=== PATIENT | male | born 1935 | race Caucasian/White ===

== ENCOUNTER 2018-12-31 18:01 | Inpatient (IN) | payer MEDICARE, OTHER ==
[2018-12-31] MEDS ORDERED: Nitro 2% OINT* (Nitroglycerin) 1 INCH/PAK PAK TOPICAL ONE (18:29)
--- NOTE | 2018-12-31 18:33 | ED ---
HPI Chest Pain - HPI Summary HPI Summary: An 83 y/o male accompanied by family presents to [facility] with a chief complaint of chest pain since this morning. He reports that he had difficulty sleeping last night, work up with chest pain this morning, ran some errands in town and his chest pain worsened. He reports that his chest pain has been constant and is now an 8/10 in severity. He also reports some nausea. He denies any cough, SOB, fever and vomiting. He says that he usually does not have chest pain when he walks. He claims that his chest pain does not radiate to his back. He denies a Hx or FHx of cardiac disease, HTN or DM. He has never had a stress test done. 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 Vital signs while in room HR: 91bpm, O2 Sat: 96, BP: 177/83. - History of Current Complaint Chief Complaint: EDChestPainROMI Time Seen by Provider: 12/31/18 18:17 Hx Obtained From: Patient, Family/[place] Onset/Duration: Started Hours Ago, Still Present Timing: Constant, Lasting Hours Initial Severity: Moderate Current Severity: Severe Pain Intensity: 7 Pain Scale Used: 0-10 Numeric Chest Pain Location: Diffuse Chest Pain Radiates: No Character: Other: - worsened since this morning Aggravating Factor(s): Exertion Alleviating Factor(s): Nothing Associated Signs and Symptoms: Positive: Nausea. Negative: Shortness of Breath , Fever, Vomiting - Allergy/Home Medications Allergies/Adverse Reactions: Allergies Allergy/AdvReac Type Severity Reaction Status Date / Time No Known Allergies Allergy Verified 12/31/18 18:11 Home Medications: Home Medications Alfuzosin HCl [Alfuzosin HCl ER] 10 mg PO DAILY 12/31/18 [History Confirmed ] Finasteride TAB* [Proscar TAB*] 5 mg PO DAILY 12/31/18 [History Confirmed ] Multivitamins/Minerals TAB* [Theragran/minerals TAB*] 1 tab PO DAILY 12/31/18 [ History Confirmed 12/31/18] Oxybutynin TAB* [Ditropan TAB*] 5 mg PO BID 12/31/18 [History Confirmed 12/31/18 ] amLODIPine TAB* [Norvasc 5 mg TAB*] 2.5 mg PO DAILY 12/31/18 [History Confirmed 12/31/18] PMH/Surg Hx/FS Hx/Imm Hx Endocrine/Hematology History: Denies: Hx Diabetes Cardiovascular History: Denies: Hx Hypertension Sensory History: Denies: Hx Deafness - Surgical History Surgery Procedure, Year, and Place: none reported Infectious Disease History: No Infectious Disease History: Denies: Traveled Outside the [place] in Last 30 Days - Family History Known Family History: Negative: Cardiac Disease, Hypertension, Diabetes - Social History Alcohol Use: Occasionally Hx Substance Use: No Substance Use Type: Reports: None Hx Tobacco Use: No Smoking Status (MU): Never Smoked Tobacco Review of Systems Negative: Fever Positive: Chest Pain Negative: Shortness Of Breath, Cough Positive: Diarrhea. Negative: Vomiting All Other Systems Reviewed And Are Negative: Yes Physical Exam - Summary Physical Exam Summary: Appearance: Well appearing, no pain distress Skin: warm, dry, reflects adequate perfusion Head/face: normal Eyes: EOMI, JULIANE ENT: normal Neck: supple, non-tender Respiratory: CTA, breath sounds present Cardiovascular: RRR, pulses symmetrical Abdomen: non-tender, soft Musculoskeletal: normal, strength/ROM intact Neuro: normal, sensory motor intact, A&Ox3 Triage Information Reviewed: Yes Vital Signs On Initial Exam: Initial Vitals Temp Pulse Resp BP Pulse Ox 98.6 F 96 16 167/71 96 12/31/18 18:08 12/31/18 18:08 12/31/18 18:08 12/31/18 18:08 12/31/18 18:08 Vital Signs Reviewed: Yes Diagnostics - Vital Signs Vital Signs Temp Pulse Resp BP Pulse Ox 12/31/18 18:08 98.6 F 96 16 167/71 96 - Laboratory Result Diagrams: 12/31/18 18:38 12/31/18 18:41 Lab Statement: Any lab studies that have been ordered have been reviewed, and results considered in the medical decision making process. - Radiology CXR Radiology Interpretation Completed By: ED Physician Summary of Radiographic Findings: No acute process. Pending official imaging report. - CT chest/abdomen/pelvis CTA CT Interpretation Completed By: Radiologist Summary of CT Findings: Chest IMPRESSION: 1. No aortic dissection, aneurysm, or rupture. 2. No pulmonary emboli. Abdomen/pelvis IMPRESSION: 1. No aortic dissection, aneurysm, or rupture. 2. Right inguinal hernia. No strangulation. 3. Distal colonic diverticulosis. ED physician has reviewed this imaging report. - EKG 18:23 Cardiac Rate: NL - 90 bpm EKG Rhythm: Sinus Rhythm Summary of EKG Findings: Normal sinus rhythm at 90 bpm, RBBB. Re-Evaluation - Re-Evaluation First Eval Re-Evaluation Time: 19:33 Chest Pain Course/Dx - Course Course Of Treatment: An 83 y/o male accompanied by family presents to [facility] with a chief complaint of chest pain since this morning. He reports that he had difficulty sleeping last night, work up with chest pain this morning, ran some errands in town and his chest pain worsened. The physical exam was unremarkable. Chest/abdomen/pelvis CT impression: Chest IMPRESSION: 1. No aortic dissection, aneurysm, or rupture. 2. No pulmonary emboli. Abdomen/ pelvis IMPRESSION: 1. No aortic dissection, aneurysm, or rupture. 2. Right inguinal hernia. No strangulation. 3. Distal colonic diverticulosis. ED physician has reviewed this imaging report. CXR was negative. EKG at 18:23 showed Normal sinus rhythm at 90 bpm, RBBB. Dr. Hollins, cardiologsit, reviewed the EKG and agreed, stating that there was no acute DE. In the ED course the patient was given Heparin IV, Iohexol (contrast) IV. Metoprolol PO, Morphine IV , NTG topical, and Zofran IV. Bloodwork and chemistries obtained.Case discussed with Dr. Schuster, hospitalist, who accepted the patient for admission. The patient is agreeable with this plan. - Chest Pain Differential Diagnosis/HQI/PQRI: Acute DE, ACS, Angina, Aortic Aneurysm, Lower Respiratory Infection, Pulmonary Embolism - Diagnoses Provider Diagnoses: Unstable angina - Provider Notifications Discussed Care Of Patient With: Altagracia Hollins Time Discussed With Above Provider: 19:36 Instructed by Provider To: Other - Says EKG shows NSR with RBBB and no acute DE - Critical Care Time Critical Care Time: 30-74 min - 60 mins Discharge - Sign-Out/Discharge Documenting (check all that apply): Patient Departure - admit Patient Received Moderate/Deep Sedation with Procedure: No - Discharge Plan Condition: Fair Disposition: ADMITTED TO [facility] Referrals: Cinthia Francisco [Primary Care Provider] - - Billing Disposition and Condition Condition: FAIR Disposition: Admitted to [facility] - Attestation Statements Document Initiated by Cedricibaric: Yes Documenting Scribe: Curtis Melton Provider For Whom Scribe is Documenting (Include Credential): Jaime Hu MD Scribe Attestation: I, Curtis Melton, scribed for Jaime Hu MD on 12/31/18 at 2133. Scribe Documentation Reviewed: Yes Provider Attestation: The documentation as recorded by the Curtis madsen accurately reflects the service I personally performed and the decisions made by me, Jaime Hu MD Status of Scribe Document: Viewed Consult Consult: At 20:50 - Discussed case with Dr. Schuster, hospitalist, who accepted the patient for admission.
[2018-12-31 18:51] LABS: ABS Basophils 0 10^3/ul (0-0.2); ABS Eosinophils 0 10^3/ul (0-0.6); ABS Lymphocytes 0.9 10^3/ul (1.0-4.8); ABS Monocytes 0.9 10^3/ul (0-0.8); ABS Neutrophils 8.8 10^3/ul (1.5-7.7); ABS Nucleated RBC 0 10^3/ul; Eosinophil % 0.2 %; Hematocrit 42 % (36-46); Hemoglobin 14.3 g/dL (14.0-18.0); Lymphocyte % 8.6 %; Mean Corpuscular HGB Conc 34 g/dL (31-36); Mean Corpuscular Hemoglobin 33 pg (27-31); Mean Corpuscular Volume 95 fL (80-94); Mean Platelet Volume 9.5 fL (7.4-10.4); Nucleated Red Blood Cells % 0; Platelet Count 172 10^3/uL (150-450); Red Blood Count 4.41 10^6 /uL (4.18-5.48); Red Cell Distribution Width 13 % (10.5-15); White Blood Count 10.7 10^3/uL (3.5-10.8)
[2018-12-31 19:00] LABS: Activated Partial Thrombo Time 31.2 seconds (26.0-36.3); INR 1.07 (0.77-1.02)
[2018-12-31 19:10] LABS: Troponin I 0.01 ng/mL (<0.04)
[2018-12-31] MEDS ORDERED: Metoprolol Tartrate TAB* 25 MG PO ONE (19:13)
[2018-12-31] MEDS ORDERED: Heparin DRIP 25,000 UNITS(*) 25,000 UNITS/500 ML BAG IV SCH (19:15)
[2018-12-31 19:23] LABS: Albumin 4.1 g/dL (3.2-5.2); Albumin/Globulin Ratio 1.6 (1-3); BUN/Creatinine Ratio 15.2 (8-20); Calcium 8.9 mg/dL (8.6-10.3); EGFR African American 94.8 (>60); EGFR Non-African American 78.4 (>60); Globulin 2.6 g/dL (2-4); Potassium 3.7 mmol/L (3.5-5.0); Total Bilirubin 0.4 mg/dL (0.2-1.0); Total Protein 6.7 g/dL (6.4-8.9)
[2018-12-31] MEDS ORDERED: Ondansetron INJ* 2 MG/ML VIAL IV ONE (19:26)
[2018-12-31] MEDS ORDERED: Morphine INJ* 2 MG/ML 1 ML SYRINGE (TWO MG - NEW SYRINGE VERSION) IV ONE (19:26)
[2018-12-31] MEDS ORDERED: Iohexol 350* (CONTRAST) 500 ML MDV IV ONE (19:34)
[2018-12-31] MEDS ORDERED: Morphine 4 MG/ML VIAL (1 ml) 4 MG/ML VIAL ONE (19:37)
[2018-12-31] MEDS ORDERED: Morphine 4 MG/ML VIAL (1 ml) 4 MG/ML VIAL IV ONE ×2 (19:39→20:32)
[2018-12-31] MEDS ORDERED: Ondansetron INJ* 2 MG/ML VIAL IV PRN (21:19)
[2018-12-31] MEDS ORDERED: Acetaminophen TAB* 325 MG PO PRN (21:19)
[2018-12-31] MEDS ORDERED: Aspirin 81 mg CHEW TAB* 81 MG TAB.CHEW PO ONE (21:37)
[2018-12-31 21:47] LABS: C Reactive Protein 1.68 mg/L (<8.01)
[2018-12-31 21:51] LABS: Urine Appearance Cloudy; Urine Bilirubin Negative (Negative); Urine Blood Negative (Negative); Urine Color Yellow; Urine Glucose 1+(50 mg/dL) (Negative); Urine Ketones Negative (Negative); Urine Nitrite Negative (Negative); Urine Protein Negative (Negative); Urine Specific Gravity 1.026 (1.010-1.030); Urine Urobilinogen Negative (Negative)
[2018-12-31 22:12] LABS: TSH (Thyroid Stimulating Horm) 2.72 mcIU/mL (0.34-5.60)
[2018-12-31 22:14] LABS: Influenza A Molecular NEGATIVE (Negative); Influenza B Molecular NEGATIVE (Negative)
[2018-12-31] MEDS: Heparin VIAL(*) 5000 UNITS/ML VIAL (FIVE THOUSAND) SUBCUT SCH (23:30)
--- NOTE | 2019-01-01 00:29 | HP ---
CC: Cinthia Kitchen* HISTORY AND PHYSICAL: DATE OF ADMISSION: 12/31/18 PRIMARY CARE PROVIDER: AMA Hess ATTENDING PHYSICIAN WHILE IN THE HOSPITAL: Dr. Malou Blackburn* (report being dictated by Rufus Camarillo NP) CHIEF COMPLAINT: 1. Weakness. 2. Chest pain. HISTORY OF PRESENT ILLNESS: Mr. Alcantara is an 83-year-old male patient. He has a history of BPH, history of trigeminal neuralgia, temporal arteritis, history of hypertension and NU for which he wears a CPAP for. He comes into our ER today stating that 2 to 3 days ago, he was having a cough, was having a hard time bringing up the sputum. He states that he developed chest pain and discomfort last night. Described this as an intense pain, which has been constant throughout the entire day today. Not worse with exertion, not worse with taking a deep breath. He states that the pain was getting worse. He was noticing it throughout the day today. He was feeling more weak, fatigued. He denied having any fevers or chills. He does state that he did have a cold a couple of weeks ago. He denies having any worsening of pain when sitting forward or lying back. He denies having any chest pain with exertion. It did not radiate into his jaw or down his neck. He had no associated shortness of breath, diaphoresis or nausea. There was concern today when he came in because of the chest discomfort and because of this, we were asked to evaluate for admission. He denied having any change in medication. He says it does not get worse when he takes a deep breath. Denies any recent trips or travel. He was evaluated in the ED, because of the chest discomfort. We were asked to evaluate for admission. He states at worst the pain is 6/10 and he notes it has been waxing and waning, it has always been a constant dull level and it gets worse at times, but he is really unable to characterize the pain for me. He denies any alleviating or aggravating factors at this point. REVIEW OF SYSTEMS: There is no documented fevers. He denied having any significant weight change. There is no ear discharge. He denied having any rhinorrhea. There was no sore throat. There is chest pain as described. There was no shortness of breath or orthopnea. There was no nocturnal dyspnea. There was no abdominal pain. No nausea, no vomiting, no dysuria, no frequency. There was no seizure, no loss of consciousness. No pruritus or skin ulcerations. Review of 14 systems completed, all others negative. PAST MEDICAL HISTORY: 1. Trigeminal neuralgia. 2. Temporal arteritis. 3. Hypertension. 4. NU. 5. BPH. PAST SURGICAL HISTORY: 1. He has had cataract extraction. 2. Knee replacement. FAMILY HISTORY: His mother had a history of GA. His father of old age. SOCIAL HISTORY: He does not smoke, does not drink. Surrogate decision maker is his . ALLERGIES: No known drug allergies. MEDICATIONS: Home meds according to the list that was provided include. 1. Ditropan 5 mg p.o. b.i.d. 2. Multivitamin 1 tablet daily. 3. Proscar 5 mg daily. 4. Amlodipine 2.5 mg daily. 5. Alfuzosin 2 mg daily. PHYSICAL EXAMINATION GENERAL: At this time, Mr. Alcantara is an 83-year-old male patient. He is sitting on an ED stretcher. He does not appear to be in any acute distress. VITAL SIGNS: Blood pressure 154/77, pulse 81, respirations are 20, O2 sat 95%, temperature was 98.6. HEENT: Head: Atraumatic and normocephalic. Eyes: EOMs are intact. Sclerae anicteric and not pale. Throat: Oral mucosa appears to be moist. No oropharyngeal erythema. NECK: Supple. LUNGS: Clear to auscultation bilaterally. There was wheezes, rales or rhonchi. HEART: Sounds S1, S2. He has a regular rate and rhythm. There was no murmurs , rubs, or gallops. ABDOMEN: Soft. It was flat. It was nontender. The bowel sounds were present. EXTREMITIES: Pulses were 2+ throughout. He is moving all 4 extremities with 5/ 5 strength. NEUROLOGIC: He is awake, alert. He is oriented x3, in no gross focal deficits. SKIN: Intact. He had no tenderness or rashes noted over the left chest wall. His skin was otherwise intact. DIAGNOSTIC STUDIES/LAB DATA: Labs today, WBC of 10.7, RBC of 4.41, hemoglobin of 14.3, hematocrit of 42, platelet count 172. His INR was 1.07. PTT of 31.2. Sodium 139, potassium is 3.7, chloride of 108, bicarb 23, BUN 14, creatinine of 0.92, glucose 210, lactate 1.5, calcium 8.9. Total bili 0.4, AST 18, ALT 15, alk phos 71. Troponin 0.01. BNP of 40. Albumin of 4.1. He had a chest, abdomen, pelvis CTA, which showed no aortic dissection, aneurysm or rupture. Right inguinal hernia. No strangulation. Distal colonic diverticulosis. EKG obtained today, I do not have an old one in our system, but it does show a normal sinus rhythm with a right bundle branch block, rate of 88. He has had 2 EKGs done here, which appeared to be stable. Chest x-ray obtained today, when I reviewed it, I did not appreciate any acute infiltrates or pulmonary edema. Old medical records were reviewed. ASSESSMENT AND PLAN: Mr. Alcantara is an 83-year-old male patient coming into the ED today with complaints of chest discomfort, which has been constant throughout the entire day today, starting last night, also with associated weakness. We were asked to evaluate for admission. He will be admitted under observation status for: 1. Chest pain. His story is atypical for cardiac, given the pain has been constant all day. His troponin was negative, his EKG has been stable, which is reassuring. I would like to cycle his troponins. I am checking an ESR and CRP given the fact 2 days prior to this he was having a cough and having difficulty bringing up his sputum. I am going to also check a flu swab. I do think it is appropriate to continue him on an aspirin for the time being and trend the troponins. I am holding on ordering the stress test just at this point, given the fact it is atypical, I would like await further workup. I would even consider giving him an NSAID as I am concerned there might be like a pleurisy or costochondritis secondary to recent upper respiratory infection. I am checking him for the flu as well. We will continue to follow. 2. Weakness. Actually it appeared to be stable. There is no obvious cause for his weakness on labs. I will check a TSH and B12. I do think we should check him for a flu. In addition to this, I think we should also check a UA as well. This certainly could be contributing to his weakness. For the time being we will continue to monitor. 3. History of benign prostate hypertrophy. Continue meds as prescribed. 4. Obstructive sleep apnea. I did write for a CPAP. 5. History of temporal arteritis and history of trigeminal neuralgia. At this point, not an active issue. We will monitor. 6. Hypertension. Continue meds as prescribed. 7. DVT prophylaxis. He is high risk. He will be placed on heparin subcu. 8. Code status. We need to clarify this with him as it is reported he has 24 hour non-hospital DNR. 9. Fluids and nutrition. He can have a heart-healthy diet. TIME SPENT: Time spent on this admission was 60 minutes greater than half of the time was spent [id number] with the patient obtaining my history and physical, other half of the time was spent going over the plan of care with the patient and implementing plan of care. I did discuss the plan of care with my attending, Dr. Blackburn. RUFUS CAMARILLO, NARA [id number]/CPS #: [id number] NATHALY
[2019-01-01] MEDS: Heparin VIAL(*) 5000 UNITS/ML VIAL (FIVE THOUSAND) SUBCUT SCH ×3 (05:18→21:15)
[2019-01-01 05:50] LABS: Erythrocyte Sed Rate 12 mm/Hr (0-20)
[2019-01-01 06:54] LABS: Hematocrit 40 % (36-46); Hemoglobin 13.4 g/dL (14.0-18.0); Mean Corpuscular HGB Conc 33 g/dL (31-36); Mean Corpuscular Hemoglobin 32 pg (27-31); Mean Corpuscular Volume 96 fL (80-94); Mean Platelet Volume 9.5 fL (7.4-10.4); Platelet Count 163 10^3/uL (150-450); Red Blood Count 4.21 10^6 /uL (4.18-5.48); Red Cell Distribution Width 13 % (10.5-15); White Blood Count 15.2 10^3/uL (3.5-10.8)
[2019-01-01 07:09] LABS: Calcium 8.7 mg/dL (8.6-10.3); EGFR African American 109.9 (>60); EGFR Non-African American 90.8 (>60); HDL Cholesterol 29.4 mg/dL; Potassium 3.7 mmol/L (3.5-5.0)
[2019-01-01 07:10] LABS: INR 1.1 (0.77-1.02)
[2019-01-01 07:43] LABS: ABS Basophils 0 10^3/ul (0-0.2); ABS Eosinophils 0.1 10^3/ul (0-0.6); ABS Lymphocytes 1.3 10^3/ul (1.0-4.8); ABS Monocytes 2.2 10^3/ul (0-0.8); ABS Neutrophils 11.6 10^3/ul (1.5-7.7); ABS Nucleated RBC 0 10^3/ul; Eosinophil % 0.4 %; Lymphocyte % 8.5 %; Nucleated Red Blood Cells % 0
[2019-01-01] MEDS: Multivitamins/Minerals TAB PO SCH (09:44)
[2019-01-01] MEDS: Oxybutynin TAB* 5 MG PO SCH ×2 (09:44→21:15)
[2019-01-01] MEDS: Finasteride TAB* 5 MG PO SCH (09:44)
[2019-01-01] MEDS: amLODIPine TAB* 5 MG PO SCH (09:44)
[2019-01-01] MEDS: Aspirin 81 mg CHEW TAB* 81 MG TAB.CHEW PO SCH (09:44)
[2019-01-01] MEDS: CMC:Alfuzosin ER (NF) 10 MG TAB.ER PO SCH (10:10)
--- NOTE | 2019-01-01 16:59 | PN ---
Subjective Date of Service: 01/01/19 Interval History: On assessment patient is resting in bed with cpap in place. Patient awakes easily and engages in ROS and assessment. Patient currently denies chest pain/pressure, shortness of breath, palpitations , nausea, vomiting. Patient reports fatigue. When recalling events leading up to presentation to ED he reports he was in his normal state of health until yesterday when he was running errands and started having chest pain that was more severe and more constant compared to previous days. He reports he was experience some mild discomfort in his chest and describes is as if he could not get something up or down for 2 days prior. He reports he has had an occasional dry cough, but it has not changed recently. No other URI symptoms. He also reports that prior to coming to the ED yesterday his son and son's friend who are both paramedics took his BP and his systolic was > 200. Patient admits to not being the best historian and recommends I call his . When discussing events with she reports patient's cough is not new or consistent. She reports he has had a very intermittent dry cough since at least early as he was seen by his PCP in Nov for this and there were no findings. She reports she has not heard on increase in cough recently. She reports patient was "normal" when he left to run errands yesterday, but when he return he was clutching his chest and holding a bag as if he would vomit. She also reports increase in fatigue the past 2 to 3 days. Objective Active Medications: Acetaminophen (Tylenol Tab*) 650 mg PO Q4H PRN PRN Reason: FEVER/PAIN Alfuzosin HCl (Uroxatral (Nf)) 10 mg PO DAILY [facility] Last Admin: 01/01/19 10:10 Dose: Not Given Amlodipine Besylate (Norvasc Tab*) 2.5 mg PO DAILY [facility] Last Admin: 01/01/19 09:44 Dose: 2.5 mg Aspirin (Aspirin 81 Mg Chew Tab*) 81 mg PO DAILY [facility] Last Admin: 01/01/19 09:44 Dose: 81 mg Finasteride (Proscar Tab*) 5 mg PO DAILY [facility] Last Admin: 01/01/19 09:44 Dose: 5 mg Heparin Sodium (Porcine) (Heparin Vial(*)) 5,000 units SUBCUT Q8HR [facility] Last Admin: 01/01/19 14:08 Dose: 5,000 units Multivitamins/Minerals (Theragran/Minerals Tab*) 1 tab PO DAILY [facility] Last Admin: 01/01/19 09:44 Dose: 1 tab Ondansetron HCl (Zofran Inj*) 4 mg IV Q6H PRN PRN Reason: NAUSEA Oxybutynin Chloride (Ditropan Tab*) 5 mg PO BID [facility] Last Admin: 01/01/19 09:44 Dose: 5 mg Vital Signs - 8 hr 01/01/19 01/01/19 01/01/19 10:09 11:19 15:44 Temperature 97.9 F 99.1 F Pulse Rate 70 64 79 Respiratory 16 18 18 Rate Blood Pressure 124/61 123/57 143/67 (mmHg) O2 Sat by Pulse 92 94 94 Oximetry Oxygen Devices in Use Now: Nasal Cannula Appearance: Comfortable, NAD Eyes: No Scleral Icterus Ears/Nose/Mouth/Throat: Clear Oropharnyx, Mucous Membranes Moist Neck: NL Appearance and Movements; NL JVP Respiratory: Symmetrical Chest Expansion and Respiratory Effort, Clear to Auscultation Cardiovascular: NL Sounds; No Murmurs; No JVD, RRR, No Edema Abdominal: NL Sounds; No Tenderness; No Distention Lymphatic: No Cervical Adenopathy Extremities: No Edema Skin: No Rash or Ulcers Neurological: Alert and Oriented x 3, NL Muscle Strength and Tone Nutrition: Taking PO's Result Diagrams: 01/01/19 06:25 01/01/19 06:25 Additional Lab and Data: Laboratory Results - last 24 hr 12/31/18 12/31/18 12/31/18 18:41 18:41 18:41 WBC 10.7 RBC 4.41 Hgb 14.3 Hct 42 MCV 95 H MCH 33 H MCHC 34 RDW 13 Plt Count 172 MPV 9.5 Neut % (Auto) 82.4 Lymph % (Auto) 8.6 [place] % (Auto) 8.4 Eos % (Auto) 0.2 Baso % (Auto) 0.4 Absolute Neuts (auto) 8.8 H Absolute Lymphs (auto) 0.9 L Absolute Monos (auto) 0.9 H Absolute Eos (auto) 0 Absolute Basos (auto) 0 Absolute Nucleated RBC 0 Nucleated RBC % 0 ESR 12 INR (Anticoag Therapy) 1.07 H APTT 31.2 Sodium 139 Potassium 3.7 Chloride 108 Carbon Dioxide 23 Anion Gap 8 BUN 14 Creatinine 0.92 Est GFR ( Amer) 94.8 Est GFR (Non-Af Amer) 78.4 BUN/Creatinine Ratio 15.2 Glucose 210 H Hemoglobin A1c Lactic Acid Calcium 8.9 Total Bilirubin 0.40 AST 18 ALT 15 Alkaline Phosphatase 71 Troponin I 0.01 C-Reactive Protein 1.68 B-Natriuretic Peptide Total Protein 6.7 Albumin 4.1 Globulin 2.6 Albumin/Globulin Ratio 1.6 Triglycerides Cholesterol LDL Cholesterol HDL Cholesterol Vitamin B12 491 TSH 2.72 Urine Color Urine Appearance Urine pH Ur Specific [place] Urine Protein Urine Ketones Urine Blood Urine Nitrate Urine Bilirubin Urine Urobilinogen Ur Leukocyte Esterase Urine Glucose Influenza A (Rapid) Influenza B (Rapid) 12/31/18 12/31/18 12/31/18 18:41 18:41 21:35 WBC RBC Hgb Hct MCV MCH MCHC RDW Plt Count MPV Neut % (Auto) Lymph % (Auto) [place] % (Auto) Eos % (Auto) Baso % (Auto) Absolute Neuts (auto) Absolute Lymphs (auto) Absolute Monos (auto) Absolute Eos (auto) Absolute Basos (auto) Absolute Nucleated RBC Nucleated RBC % ESR INR (Anticoag Therapy) APTT Sodium Potassium Chloride Carbon Dioxide Anion Gap BUN Creatinine Est GFR ( Amer) Est GFR (Non-Af Amer) BUN/Creatinine Ratio Glucose Hemoglobin A1c Lactic Acid 1.5 Calcium Total Bilirubin AST ALT Alkaline Phosphatase Troponin I 0.01 C-Reactive Protein B-Natriuretic Peptide 40 Total Protein Albumin Globulin Albumin/Globulin Ratio Triglycerides Cholesterol LDL Cholesterol HDL Cholesterol Vitamin B12 TSH Urine Color Urine Appearance Urine pH Ur Specific [place] Urine Protein Urine Ketones Urine Blood Urine Nitrate Urine Bilirubin Urine Urobilinogen Ur Leukocyte Esterase Urine Glucose Influenza A (Rapid) Influenza B (Rapid) 12/31/18 12/31/18 01/01/19 21:40 22:02 00:26 WBC RBC Hgb Hct MCV MCH MCHC RDW Plt Count MPV Neut % (Auto) Lymph % (Auto) [place] % (Auto) Eos % (Auto) Baso % (Auto) Absolute Neuts (auto) Absolute Lymphs (auto) Absolute Monos (auto) Absolute Eos (auto) Absolute Basos (auto) Absolute Nucleated RBC Nucleated RBC % ESR INR (Anticoag Therapy) APTT Sodium Potassium Chloride Carbon Dioxide Anion Gap BUN Creatinine Est GFR ( Amer) Est GFR (Non-Af Amer) BUN/Creatinine Ratio Glucose Hemoglobin A1c Lactic Acid Calcium Total Bilirubin AST ALT Alkaline Phosphatase Troponin I 0.01 C-Reactive Protein B-Natriuretic Peptide Total Protein Albumin Globulin Albumin/Globulin Ratio Triglycerides Cholesterol LDL Cholesterol HDL Cholesterol Vitamin B12 TSH Urine Color Yellow Urine Appearance Cloudy Urine pH 7.0 Ur Specific [place] 1.026 Urine Protein Negative Urine Ketones Negative Urine Blood Negative Urine Nitrate Negative Urine Bilirubin Negative Urine Urobilinogen Negative Ur Leukocyte Esterase Negative Urine Glucose 1+(50 mg/dl) A Influenza A (Rapid) Negative Influenza B (Rapid) Negative 01/01/19 01/01/19 01/01/19 06:25 06:25 06:25 WBC 15.2 H RBC 4.21 Hgb 13.4 L Hct 40 MCV 96 H MCH 32 H MCHC 33 RDW 13 Plt Count 163 MPV 9.5 Neut % (Auto) 76.3 Lymph % (Auto) 8.5 [place] % (Auto) 14.7 Eos % (Auto) 0.4 Baso % (Auto) 0.1 Absolute Neuts (auto) 11.6 H Absolute Lymphs (auto) 1.3 Absolute Monos (auto) 2.2 H Absolute Eos (auto) 0.1 Absolute Basos (auto) 0 Absolute Nucleated RBC 0 Nucleated RBC % 0 ESR INR (Anticoag Therapy) 1.10 H APTT Sodium 141 Potassium 3.7 Chloride 107 Carbon Dioxide 27 Anion Gap 7 BUN 13 Creatinine 0.81 Est GFR ( Amer) 109.9 Est GFR (Non-Af Amer) 90.8 BUN/Creatinine Ratio 16.0 Glucose 156 H Hemoglobin A1c Lactic Acid Calcium 8.7 Total Bilirubin AST ALT Alkaline Phosphatase Troponin I C-Reactive Protein B-Natriuretic Peptide Total Protein Albumin Globulin Albumin/Globulin Ratio Triglycerides 86 Cholesterol 120 LDL Cholesterol 73 HDL Cholesterol 29.4 Vitamin B12 TSH Urine Color Urine Appearance Urine pH Ur Specific [place] Urine Protein Urine Ketones Urine Blood Urine Nitrate Urine Bilirubin Urine Urobilinogen Ur Leukocyte Esterase Urine Glucose Influenza A (Rapid) Influenza B (Rapid) 01/01/19 06:25 WBC RBC Hgb Hct MCV MCH MCHC RDW Plt Count MPV Neut % (Auto) Lymph % (Auto) [place] % (Auto) Eos % (Auto) Baso % (Auto) Absolute Neuts (auto) Absolute Lymphs (auto) Absolute Monos (auto) Absolute Eos (auto) Absolute Basos (auto) Absolute Nucleated RBC Nucleated RBC % ESR INR (Anticoag Therapy) APTT Sodium Potassium Chloride Carbon Dioxide Anion Gap BUN Creatinine Est GFR ( Amer) Est GFR (Non-Af Amer) BUN/Creatinine Ratio Glucose Hemoglobin A1c 5.6 Lactic Acid Calcium Total Bilirubin AST ALT Alkaline Phosphatase Troponin I C-Reactive Protein B-Natriuretic Peptide Total Protein Albumin Globulin Albumin/Globulin Ratio Triglycerides Cholesterol LDL Cholesterol HDL Cholesterol Vitamin B12 TSH Urine Color Urine Appearance Urine pH Ur Specific [place] Urine Protein Urine Ketones Urine Blood Urine Nitrate Urine Bilirubin Urine Urobilinogen Ur Leukocyte Esterase Urine Glucose Influenza A (Rapid) Influenza B (Rapid) Microbiology and Other Data: Microbiology 12/31/18 21:40 Influenza Types A,B Antigen - Final Nasopharyngeal Specimen received for Influenza A/B Molecular testing Assess/Plan/Problems-Billing Assessment: 83 yr old male with pmh of bph, trigeminal neuralgia, temp arteritis, htn, anjelica; who present to ED with chest pain x 3 days and worsening on day of presentation. - Patient Problems (1) Chest pain Comment: - Repeat EKGs unchanged. Sinus with RBBB. No old EKGs to compare - Trops negative - Sinus with 1st degree and occasional PACs on tele - Asmptomatic currently - Stress and echo orderd for tomorrow - Could also be upper resp in etiology, but given 's report will r/o cardiac (2) HTN (hypertension) Comment: - Report SBP > 200 at home prior to presentation - Midly elevated in ED - Currently normotensive. Continue home medications as same and monitor (3) ANJELICA (obstructive sleep apnea) Comment: - Cont home cpap use (4) BPH (benign prostatic hyperplasia) Comment: - Cont home medications (5) DVT prophylaxis Comment: - Sub Q Heparin Attending: Michelle Nowak
--- NOTE | 2019-01-01 20:34 | PN ---
Hospitalist Progress Note Date of Service: 01/01/19 HOSPITALIST ADDENDUM Called by RN because patient sustained a mechanical fall while trying to get out of bed. No head trauma. Will start post fall VS protocol and place personal alarm. Continue to monitor.
[2019-01-02] MEDS: Heparin VIAL(*) 5000 UNITS/ML VIAL (FIVE THOUSAND) SUBCUT SCH ×3 (05:53→21:57)
[2019-01-02 08:08] LABS: BUN/Creatinine Ratio 19.8 (8-20); Calcium 9.3 mg/dL (8.6-10.3); EGFR Non-African American 79.4 (>60); Potassium 4.2 mmol/L (3.5-5.0)
[2019-01-02 08:17] LABS: Hematocrit 42 % (36-46); Hemoglobin 14.5 g/dL (14.0-18.0); Mean Corpuscular HGB Conc 34 g/dL (31-36); Mean Corpuscular Hemoglobin 33 pg (27-31); Mean Corpuscular Volume 95 fL (80-94); Mean Platelet Volume 9.5 fL (7.4-10.4); Platelet Count 158 10^3/uL (150-450); Red Blood Count 4.47 10^6 /uL (4.18-5.48); Red Cell Distribution Width 13 % (10.5-15); White Blood Count 21.9 10^3/uL (3.5-10.8)
[2019-01-02 08:53] LABS: ABS Basophils 0.1 10^3/ul (0-0.2); ABS Eosinophils 0 10^3/ul (0-0.6); ABS Lymphocytes 1.2 10^3/ul (1.0-4.8); ABS Monocytes 3.3 10^3/ul (0-0.8); ABS Neutrophils 17.2 10^3/ul (1.5-7.7); ABS Nucleated RBC 0 10^3/ul; Eosinophil % 0.1 %; Lymphocyte % 5.7 %; Nucleated Red Blood Cells % 0.1
[2019-01-02] MEDS ORDERED: Regadenoson* 0.4 MG/5 ML SYRINGE ONE (09:24)
[2019-01-02] MEDS ORDERED: Aminophylline IV* 25 MG/ML 10 ML VIAL ONE (09:24)
[2019-01-02] MEDS ORDERED: Perflutren Lipid Microsphere* 3 ML VIAL ONE (10:44)
--- NOTE | 2019-01-02 11:43 | ECHO ---
Patient: LIA CISNEROS [facility] Rec#: [id number] : 1935 Date: 01/02/2019 Age: 83y Height: 180 cm / 70.9 in Weight: 111 kg / 244.6 lbs Sex: M BSA: 2.29 Room#: [facility] Admit Date#: 12/31/2018 Type: Inpatient Referring: Ema Ely Reading: Chu Lion DO Facilities And Grounds Director: Merna Schilling RDCS CC: Cinthia Lyons Transthoracic Echocardiogram Indication: Chest pain BP: 140/59 HR: 101 Rhythm: Tachycardia Findings History: Trigeminal neuralgia, HTN, NU with CPAP. Technical Comments: The study is technically difficult. The study is technically limited due to patient body habitus. Completed at 1130. Left Ventricle: The left ventricular chamber size is normal. Mild concentric left ventricular hypertrophy is observed. Global left ventricular wall motion and contractility are within normal limits. The left ventricle appears hyperdynamic. The estimated ejection fraction is greater than 65%. There is no consistent Doppler evidence of clinically significant diastolic dysfunction. Left Atrium: The left atrium is mildly dilated. Right Ventricle: The right ventricle is mildly dilated. The right ventricular global systolic function is mildly reduced. Right Atrium: The right atrium is mild to moderately dilated. Aortic Valve: The aortic valve is trileaflet. The aortic valve leaflets are mildly thickened. There is a trace of aortic regurgitation. There is no evidence of aortic stenosis. Mitral Valve: There is mitral annular calcification. The mitral valve leaflets are mildly thickened. There is a trace of mitral regurgitation. There is no evidence of mitral stenosis. Tricuspid Valve: The tricuspid valve leaflets are normal. There is mild tricuspid regurgitation. No pulmonary hypertension is noted. There is no tricuspid stenosis. Pulmonic Valve: The pulmonic valve appears normal. There is a trace pulmonic regurgitation. There is no pulmonic stenosis. Pericardium: There is no significant pericardial effusion. Aorta: There is mild dilatation of the ascending aorta. There is no dilatation of the aortic arch. The aortic root is normal in size. Pulmonary Artery: The main pulmonary artery is not well visualized. Venous: The inferior vena cava appears normal in size. There is a greater than 50% respiratory change in the inferior vena cava dimension. Contrast: Definity was used to optimize study. 3 mL of diluted Definity were utilized. Intravenous contrast was used to enhance endocardial border definition. Conclusions The left ventricular chamber size is normal. Mild concentric left ventricular hypertrophy is observed. The left ventricle appears hyperdynamic. The estimated ejection fraction is greater than 70%. Global left ventricular wall motion and contractility are within normal limits. The left atrium is mildly dilated. The right ventricle is mildly dilated. The right ventricular global systolic function is mildly reduced. No significant valvular abnormalities noted Definity was used to optimize study. None prior for comparison at time of interpretation Measurements Name Value Normal Range RVIDd (AP) 2D 3.4 cm (0.9 - 2.6) RVDdMajor (2D) 4.8 cm (2.2 - 4.4) RVAW (2D) 0.8 cm (0.2 - 0.5) RAd ISD 4CH 6 cm (3.4 - 4.9) RA (A4C)W 4.3 cm (2.9 - 4.6) IVSd (2D) 1.3 cm (0.6 - 1) LVPWd (2D) 1.3 cm (0.6 - 1) LVIDd (2D) 5 cm (3.6 - 5.4) LVIDs (2D) 3.1 cm - LV FS (2D) 38 % (25 - 45) Aortic Annulus 2.3 cm (1.4 - 2.6) Ao root diameter (2D) 3.4 cm (2.1 - 3.5) Ascending Ao 3.8 cm (2.1 - 3.4) Aortic arch 3.3 cm (1.8 - 3.4) LA dimension (AP) 2D 4.2 cm (2.3 - 3.8) LAd ISD 4CH 6.1 cm (2.9 - 5.3) LA ISD 4CH W 4.1 cm (2.5 - 4.5) Name Value Normal Range LA ESV BP (A/L) index 30 ml/m2 - Name Value Normal Range MV E-wave Vmax 1 m/sec - MV deceleration time 180 msec - LV septal e' Vmax 0.16 m/sec - LV lateral e' Vmax 0.18 m/sec - LV E:e' septal ratio 6.3 ratio - LV E:e' lateral ratio 5.6 ratio - Name Value Normal Range AV Vmax 1.2 m/sec - AV VTI 20 cm - AV peak gradient 6 mmHg - AV mean gradient 3 mmHg - LVOT Vmax 1 m/sec - LVOT VTI 15 cm - LVOT peak gradient 4 mmHg - LVOT mean gradient 2 mmHg - SANTIAGO Vmax 0.7 m/sec - Name Value Normal Range TR Vmax 2.7 m/sec - TR peak gradient 29 mmHg - RAP 3 mmHg - RVSP 32 mmHg - IVC diameter 1.6 cm - Name Value Normal Range PV Vmax 1.4 m/sec - PV peak gradient 8 mmHg - MA Vmax 1.3 m/sec - Mean PA pressure 7 mmHg -
[2019-01-02] MEDS: Finasteride TAB* 5 MG PO SCH (12:21)
[2019-01-02] MEDS: Oxybutynin TAB* 5 MG PO SCH ×2 (12:21→20:38)
[2019-01-02] MEDS: amLODIPine TAB* 5 MG PO SCH (12:21)
[2019-01-02] MEDS: Aspirin 81 mg CHEW TAB* 81 MG TAB.CHEW PO SCH (12:21)
[2019-01-02] MEDS: Multivitamins/Minerals TAB PO SCH (12:21)
[2019-01-02] MEDS: CMC:Alfuzosin ER (NF) 10 MG TAB.ER PO SCH (12:22)
[2019-01-02 15:24] LABS: ALT 15 U/L (7-52); AST 22 U/L (13-39); Albumin 3.8 g/dL (3.2-5.2); Albumin/Globulin Ratio 1.3 (1-3); Alkaline Phosphatase 66 U/L (34-104); Total Protein 6.8 g/dL (6.4-8.9)
--- NOTE | 2019-01-02 16:51 | PN ---
Subjective Date of Service: 01/02/19 Interval History: febrile to 101.4 last night he feels "not so good" today but has a hard time describing complains of abdominal discomfort--denies pain, but says it feels "solid," and can't describe iti further no nausea, vomiting. +constipation, no diarrhea. Objective Active Medications: Acetaminophen (Tylenol Tab*) 650 mg PO Q4H PRN PRN Reason: FEVER/PAIN Last Admin: 01/01/19 23:54 Dose: 650 mg Alfuzosin HCl (Uroxatral (Nf)) 10 mg PO DAILY [facility] Last Admin: 01/02/19 12:22 Dose: Not Given Amlodipine Besylate (Norvasc Tab*) 2.5 mg PO DAILY [facility] Last Admin: 01/02/19 12:21 Dose: 2.5 mg Aspirin (Aspirin 81 Mg Chew Tab*) 81 mg PO DAILY [facility] Last Admin: 01/02/19 12:21 Dose: 81 mg Finasteride (Proscar Tab*) 5 mg PO DAILY [facility] Last Admin: 01/02/19 12:21 Dose: 5 mg Heparin Sodium (Porcine) (Heparin Vial(*)) 5,000 units SUBCUT Q8HR [facility] Last Admin: 01/02/19 14:50 Dose: 5,000 units Multivitamins/Minerals (Theragran/Minerals Tab*) 1 tab PO DAILY [facility] Last Admin: 01/02/19 12:21 Dose: 1 tab Ondansetron HCl (Zofran Inj*) 4 mg IV Q6H PRN PRN Reason: NAUSEA Oxybutynin Chloride (Ditropan Tab*) 5 mg PO BID [facility] Last Admin: 01/02/19 12:21 Dose: 5 mg Vital Signs - 8 hr 01/02/19 12:00 Temperature 97.7 F Pulse Rate 99 Respiratory 24 Rate Blood Pressure 161/80 (mmHg) O2 Sat by Pulse 96 Oximetry Oxygen Devices in Use Now: None Appearance: alert, no distress, pleasant and visiting with his Eyes: No Scleral Icterus Ears/Nose/Mouth/Throat: NL Teeth, Lips, Gums, - - dry mucosa Neck: NL Appearance and Movements; NL JVP Respiratory: Symmetrical Chest Expansion and Respiratory Effort, Clear to Auscultation Cardiovascular: NL Sounds; No Murmurs; No JVD, RRR Abdominal: - - distended, but neither he nor his think it's bigger than usual. tender diffusely without guarding or rebound. no rigidity. negative lozano's Lymphatic: No Cervical Adenopathy Extremities: No Edema Skin: No Rash or Ulcers Neurological: Alert and Oriented x 3, - - strength is 5/5 in all extremities Result Diagrams: 01/02/19 07:56 01/02/19 06:44 Additional Lab and Data: Laboratory Results - last 24 hr 12/31/18 12/31/18 12/31/18 18:41 18:41 18:41 WBC 10.7 RBC 4.41 Hgb 14.3 Hct 42 MCV 95 H MCH 33 H MCHC 34 RDW 13 Plt Count 172 MPV 9.5 Neut % (Auto) 82.4 Lymph % (Auto) 8.6 [place] % (Auto) 8.4 Eos % (Auto) 0.2 Baso % (Auto) 0.4 Absolute Neuts (auto) 8.8 H Absolute Lymphs (auto) 0.9 L Absolute Monos (auto) 0.9 H Absolute Eos (auto) 0 Absolute Basos (auto) 0 Absolute Nucleated RBC 0 Nucleated RBC % 0 ESR 12 INR (Anticoag Therapy) 1.07 H APTT 31.2 Sodium 139 Potassium 3.7 Chloride 108 Carbon Dioxide 23 Anion Gap 8 BUN 14 Creatinine 0.92 Est GFR ( Amer) 94.8 Est GFR (Non-Af Amer) 78.4 BUN/Creatinine Ratio 15.2 Glucose 210 H Hemoglobin A1c Lactic Acid Calcium 8.9 Total Bilirubin 0.40 AST 18 ALT 15 Alkaline Phosphatase 71 Troponin I 0.01 C-Reactive Protein 1.68 B-Natriuretic Peptide Total Protein 6.7 Albumin 4.1 Globulin 2.6 Albumin/Globulin Ratio 1.6 Triglycerides Cholesterol LDL Cholesterol HDL Cholesterol Vitamin B12 491 TSH 2.72 Urine Color Urine Appearance Urine pH Ur Specific [place] Urine Protein Urine Ketones Urine Blood Urine Nitrate Urine Bilirubin Urine Urobilinogen Ur Leukocyte Esterase Urine Glucose Influenza A (Rapid) Influenza B (Rapid) 12/31/18 12/31/18 12/31/18 18:41 18:41 21:35 WBC RBC Hgb Hct MCV MCH MCHC RDW Plt Count MPV Neut % (Auto) Lymph % (Auto) [place] % (Auto) Eos % (Auto) Baso % (Auto) Absolute Neuts (auto) Absolute Lymphs (auto) Absolute Monos (auto) Absolute Eos (auto) Absolute Basos (auto) Absolute Nucleated RBC Nucleated RBC % ESR INR (Anticoag Therapy) APTT Sodium Potassium Chloride Carbon Dioxide Anion Gap BUN Creatinine Est GFR ( Amer) Est GFR (Non-Af Amer) BUN/Creatinine Ratio Glucose Hemoglobin A1c Lactic Acid 1.5 Calcium Total Bilirubin AST ALT Alkaline Phosphatase Troponin I 0.01 C-Reactive Protein B-Natriuretic Peptide 40 Total Protein Albumin Globulin Albumin/Globulin Ratio Triglycerides Cholesterol LDL Cholesterol HDL Cholesterol Vitamin B12 TSH Urine Color Urine Appearance Urine pH Ur Specific [place] Urine Protein Urine Ketones Urine Blood Urine Nitrate Urine Bilirubin Urine Urobilinogen Ur Leukocyte Esterase Urine Glucose Influenza A (Rapid) Influenza B (Rapid) 12/31/18 12/31/18 01/01/19 21:40 22:02 00:26 WBC RBC Hgb Hct MCV MCH MCHC RDW Plt Count MPV Neut % (Auto) Lymph % (Auto) [place] % (Auto) Eos % (Auto) Baso % (Auto) Absolute Neuts (auto) Absolute Lymphs (auto) Absolute Monos (auto) Absolute Eos (auto) Absolute Basos (auto) Absolute Nucleated RBC Nucleated RBC % ESR INR (Anticoag Therapy) APTT Sodium Potassium Chloride Carbon Dioxide Anion Gap BUN Creatinine Est GFR ( Amer) Est GFR (Non-Af Amer) BUN/Creatinine Ratio Glucose Hemoglobin A1c Lactic Acid Calcium Total Bilirubin AST ALT Alkaline Phosphatase Troponin I 0.01 C-Reactive Protein B-Natriuretic Peptide Total Protein Albumin Globulin Albumin/Globulin Ratio Triglycerides Cholesterol LDL Cholesterol HDL Cholesterol Vitamin B12 TSH Urine Color Yellow Urine Appearance Cloudy Urine pH 7.0 Ur Specific [place] 1.026 Urine Protein Negative Urine Ketones Negative Urine Blood Negative Urine Nitrate Negative Urine Bilirubin Negative Urine Urobilinogen Negative Ur Leukocyte Esterase Negative Urine Glucose 1+(50 mg/dl) A Influenza A (Rapid) Negative Influenza B (Rapid) Negative 01/01/19 01/01/19 01/01/19 06:25 06:25 06:25 WBC 15.2 H RBC 4.21 Hgb 13.4 L Hct 40 MCV 96 H MCH 32 H MCHC 33 RDW 13 Plt Count 163 MPV 9.5 Neut % (Auto) 76.3 Lymph % (Auto) 8.5 [place] % (Auto) 14.7 Eos % (Auto) 0.4 Baso % (Auto) 0.1 Absolute Neuts (auto) 11.6 H Absolute Lymphs (auto) 1.3 Absolute Monos (auto) 2.2 H Absolute Eos (auto) 0.1 Absolute Basos (auto) 0 Absolute Nucleated RBC 0 Nucleated RBC % 0 ESR INR (Anticoag Therapy) 1.10 H APTT Sodium 141 Potassium 3.7 Chloride 107 Carbon Dioxide 27 Anion Gap 7 BUN 13 Creatinine 0.81 Est GFR ( Amer) 109.9 Est GFR (Non-Af Amer) 90.8 BUN/Creatinine Ratio 16.0 Glucose 156 H Hemoglobin A1c Lactic Acid Calcium 8.7 Total Bilirubin AST ALT Alkaline Phosphatase Troponin I C-Reactive Protein B-Natriuretic Peptide Total Protein Albumin Globulin Albumin/Globulin Ratio Triglycerides 86 Cholesterol 120 LDL Cholesterol 73 HDL Cholesterol 29.4 Vitamin B12 TSH Urine Color Urine Appearance Urine pH Ur Specific [place] Urine Protein Urine Ketones Urine Blood Urine Nitrate Urine Bilirubin Urine Urobilinogen Ur Leukocyte Esterase Urine Glucose Influenza A (Rapid) Influenza B (Rapid) 01/01/19 06:25 WBC RBC Hgb Hct MCV MCH MCHC RDW Plt Count MPV Neut % (Auto) Lymph % (Auto) [place] % (Auto) Eos % (Auto) Baso % (Auto) Absolute Neuts (auto) Absolute Lymphs (auto) Absolute Monos (auto) Absolute Eos (auto) Absolute Basos (auto) Absolute Nucleated RBC Nucleated RBC % ESR INR (Anticoag Therapy) APTT Sodium Potassium Chloride Carbon Dioxide Anion Gap BUN Creatinine Est GFR ( Amer) Est GFR (Non-Af Amer) BUN/Creatinine Ratio Glucose Hemoglobin A1c 5.6 Lactic Acid Calcium Total Bilirubin AST ALT Alkaline Phosphatase Troponin I C-Reactive Protein B-Natriuretic Peptide Total Protein Albumin Globulin Albumin/Globulin Ratio Triglycerides Cholesterol LDL Cholesterol HDL Cholesterol Vitamin B12 TSH Urine Color Urine Appearance Urine pH Ur Specific [place] Urine Protein Urine Ketones Urine Blood Urine Nitrate Urine Bilirubin Urine Urobilinogen Ur Leukocyte Esterase Urine Glucose Influenza A (Rapid) Influenza B (Rapid) Microbiology and Other Data: Microbiology 12/31/18 21:40 Influenza Types A,B Antigen - Final Nasopharyngeal Specimen received for Influenza A/B Molecular testing Assess/Plan/Problems-Billing Assessment: 83 yr old male with pmh of bph, trigeminal neuralgia, temp arteritis, htn, anjelica; who present to ED with chest pain x 3 days and worsening on day of presentation. - Patient Problems (1) SIRS (systemic inflammatory response syndrome) Current Visit: Yes Status: Acute Code(s): R65.10 - SIRS OF NON-INFECTIOUS ORIGIN W/O ACUTE ORGAN DYSFUNCTION SNOMED Code(s): 939879676 Comment: with an unclear source bili mildly elevated so I checked a gallbladder US today which was unremarkable had CT chest/abd/pelvis at admission which was also unremarkable lactic unremarkable UA negative, flu negative blood cultures sent today (2) Chest pain Current Visit: Yes Status: Acute Code(s): R07.9 - CHEST PAIN, UNSPECIFIED SNOMED Code(s): 74270779 Comment: troponins ruled out ACS, stress today was low risk, CTA ruled out dissection (3) BPH (benign prostatic hyperplasia) Current Visit: Yes Status: Acute Code(s): N40.0 - BENIGN PROSTATIC HYPERPLASIA WITHOUT LOWER URINRY TRACT SYMP SNOMED Code(s): 289213046 Comment: - Cont home medications (4) HTN (hypertension) Current Visit: Yes Status: Acute Code(s): I10 - ESSENTIAL (PRIMARY) HYPERTENSION SNOMED Code(s): 90866155 Comment: Report SBP > 200 at home prior to presentation however not here Continue home medications as same and monitor (5) ANJELICA (obstructive sleep apnea) Current Visit: Yes Status: Acute Code(s): G47.33 - OBSTRUCTIVE SLEEP APNEA ( ADULT) (PEDIATRIC) SNOMED Code(s): 17004095 Comment: Cont home cpap use Status and Disposition: inpatient for SIRS of unclear etiology, cultures pending
[2019-01-03] MEDS: Heparin VIAL(*) 5000 UNITS/ML VIAL (FIVE THOUSAND) SUBCUT SCH ×3 (05:53→21:17)
[2019-01-03 07:33] LABS: Hematocrit 43 % (36-46); Hemoglobin 14.2 g/dL (14.0-18.0); Mean Corpuscular HGB Conc 33 g/dL (31-36); Mean Corpuscular Hemoglobin 32 pg (27-31); Mean Corpuscular Volume 95 fL (80-94); Mean Platelet Volume 10.1 fL (7.4-10.4); Platelet Count 158 10^3/uL (150-450); Red Cell Distribution Width 13 % (10.5-15); White Blood Count 30.4 10^3/uL (3.5-10.8)
[2019-01-03 07:48] LABS: Albumin 3.4 g/dL (3.2-5.2); Calcium 8.9 mg/dL (8.6-10.3); Potassium 3.5 mmol/L (3.5-5.0); Total Bilirubin 1.1 mg/dL (0.2-1.0)
[2019-01-03 07:53] LABS: Albumin/Globulin Ratio 1.5 (1-3); EGFR African American 105.3 (>60); EGFR Non-African American 87.1 (>60); Globulin 2.3 g/dL (2-4); Total Protein 5.7 g/dL (6.4-8.9)
[2019-01-03 08:17] LABS: ABS Basophils 0 10^3/ul (0-0.2); ABS Eosinophils 0 10^3/ul (0-0.6); ABS Lymphocytes 1.2 10^3/ul (1.0-4.8); ABS Monocytes 3.6 10^3/ul (0-0.8); ABS Neutrophils 25.6 10^3/ul (1.5-7.7); ABS Nucleated RBC 0 10^3/ul; Eosinophil % 0 %; Lymphocyte % 3.9 %; Nucleated Red Blood Cells % 0
[2019-01-03] MEDS: CMC:Alfuzosin ER (NF) 10 MG TAB.ER PO SCH (10:52)
[2019-01-03] MEDS: Finasteride TAB* 5 MG PO SCH (10:59)
[2019-01-03] MEDS: Multivitamins/Minerals TAB PO SCH (10:59)
[2019-01-03] MEDS: Aspirin 81 mg CHEW TAB* 81 MG TAB.CHEW PO SCH (10:59)
[2019-01-03] MEDS: amLODIPine TAB* 5 MG PO SCH (10:59)
[2019-01-03] MEDS: Oxybutynin TAB* 5 MG PO SCH ×2 (10:59→21:18)
[2019-01-03 14:48] LABS: Influenza A Molecular NEGATIVE (Negative); Influenza B Molecular NEGATIVE (Negative)
[2019-01-03] MEDS ORDERED: Sodium Phosphate ADULT ENEMA* 118 ml bottle PR ONE (15:01)
--- NOTE | 2019-01-03 17:53 | PN ---
Subjective Date of Service: 01/03/19 Interval History: Mr. Alcantara is still feeling poorly. His main complaint is weakness. He is very distressed about this and does not understand why he is feeling this way. Denies CP, SOB, N/V. Was able to provide a sputum sample. Nursing concerned about meeting sepsis criteria and feels weakness has worsened over the last few days. Family History: Unchanged from Admission Social History: Unchanged from Admission Past Medical History: Unchanged from Admission Objective Active Medications: Acetaminophen (Tylenol Tab*) 650 mg PO Q4H PRN FEVER/PAIN Alfuzosin HCl (Uroxatral (Nf)) 10 mg PO DAILY [facility] Amlodipine Besylate (Norvasc Tab*) 2.5 mg PO DAILY [facility] Aspirin (Aspirin 81 Mg Chew Tab*) 81 mg PO DAILY [facility] Finasteride (Proscar Tab*) 5 mg PO DAILY [facility] Heparin Sodium (Porcine) (Heparin Vial(*)) 5,000 units SUBCUT Q8HR [facility] Sodium Chloride (Ns 0.9% 1000 Ml) 1,000 mls @ 125 mls/hr IV PER RATE [facility] Ceftriaxone Sodium 1 gm/ (Sodium Chloride) 50 mls @ 200 mls/hr IVPB Q24H [facility] Azithromycin 500 mg/ Sodium (Chloride) 250 mls @ 250 mls/hr IVPB Q24H [facility] Multivitamins/Minerals (Theragran/Minerals Tab*) 1 tab PO DAILY [facility] Ondansetron HCl (Zofran Inj*) 4 mg IV Q6H PRN [facility]USE[facility] Oxybutynin Chloride (Ditropan Tab*) 5 mg PO BID [facility] Oxygen Devices in Use Now: None, CPAP Appearance: Elderly male sitting in bed in NAD Eyes: No Scleral Icterus Ears/Nose/Mouth/Throat: Mucous Membranes Moist Neck: NL Appearance and Movements; NL JVP, Trachea Midline Respiratory: Symmetrical Chest Expansion and Respiratory Effort, Clear to Auscultation Cardiovascular: NL Sounds; No Murmurs; No JVD, RRR Abdominal: - - Diffusely tender, distended at baseline Extremities: No Edema Neurological: Alert and Oriented x 3 Lines/Tubes/Other Access: Clean, Dry and Intact Peripheral IV Nutrition: Taking PO's Result Diagrams: 01/03/19 06:54 01/03/19 06:54 Assess/Plan/Problems-Billing Assessment: Mr. Alcantara is an 83 yr old male with PMH of BPH, trigeminal neuralgia, temporal arteritis, HTN, NU; who present to ED with chest pain x 3 days and worsening on day of presentation. - Patient Problems (1) Pneumonia Code(s): J18.9 - PNEUMONIA, UNSPECIFIED ORGANISM Comment: - Not noted on CTA on admission, but repeat CXR today shows left basilar pneumonia - Check legionella and strep pneumo urine antigens - Sputum culture pending - Start ceftriaxone, azithromycin (2) Sepsis Comment: - Meets criteria with tachycardia, tachypnea, leukocytosis - Present since admission with unknown source, source now presumed to be pneumonia - Blood cultures from yesterday negative to date - Plan as above (3) Chest pain Code(s): R07.9 - CHEST PAIN, UNSPECIFIED Comment: - Present on admission, now resolved - Negative trops, no EKG changes; CTA ruled out dissection; stress test low risk - Suspect chest pain may have been secondary to a developing pneumonia (4) HTN (hypertension) Code(s): I10 - ESSENTIAL (PRIMARY) HYPERTENSION Comment: - Hypertensive, SBP 140-160s - Increase amlodipine (5) NU (obstructive sleep apnea) Code(s): G47.33 - OBSTRUCTIVE SLEEP APNEA (ADULT) (PEDIATRIC) Comment: - CPAP (6) BPH (benign prostatic hyperplasia) Code(s): N40.0 - BENIGN PROSTATIC HYPERPLASIA WITHOUT LOWER URINRY TRACT SYMP Comment: - Continue alfuzosin, finasteride (7) DVT prophylaxis Comment: - Heparin SQ (8) DNR (do not resuscitate) Comment: Status and Disposition: Inpatient for sepsis secondary to pneumonia. Anticipate d/c home vs [facility] when medically stable, likely 2-3 more days. Attending: John Mccormick
[2019-01-03] MEDS ORDERED: NS 0.9% 1000 ML** 1,000 ML IV ONE (17:55)
[2019-01-03] MEDS: cefTRIAXone(*) 1 GM in NS 0.9% 50 ML* 50 ML IVPB SCH (18:28)
[2019-01-03] MEDS: Azithromycin IV(*) 500 MG in NS 0.9% 250 ML* 250 ML IVPB SCH (19:15)
[2019-01-03 20:29] LABS: Urine Appearance Cloudy; Urine Bacteria Absent (Absent); Urine Bilirubin Negative (Negative); Urine Blood 2+ (Negative); Urine Color Amber; Urine Glucose 1+(50 mg/dL) (Negative); Urine Ketones Negative (Negative); Urine Nitrite Negative (Negative); Urine Protein 1+(30 mg/dL) (Negative); Urine Red Blood Cell 1+(3-5/hpf) (Absent); Urine Specific Gravity 1.021 (1.010-1.030); Urine Urobilinogen Negative (Negative); Urine White Blood Cell Trace(0-5/hpf) (Absent)
[2019-01-03] MEDS ORDERED: Polyethylene Glycol 3350* 17 GM PACKET PO ONE (21:52)
[2019-01-03] MEDS: Senna TAB PO SCH (22:21)
[2019-01-03] MEDS: NS 0.9% 1000 ML** 1,000 ML IV SCH (23:43)
[2019-01-04 05:31] LABS: Hematocrit 39 % (36-46); Hemoglobin 12.9 g/dL (14.0-18.0); Mean Corpuscular HGB Conc 33 g/dL (31-36); Mean Corpuscular Hemoglobin 32 pg (27-31); Mean Corpuscular Volume 95 fL (80-94); Mean Platelet Volume 9.8 fL (7.4-10.4); Platelet Count 140 10^3/uL (150-450); Red Blood Count 4.07 10^6 /uL (4.18-5.48); Red Cell Distribution Width 13 % (10.5-15); White Blood Count 23.4 10^3/uL (3.5-10.8)
[2019-01-04] MEDS: Heparin VIAL(*) 5000 UNITS/ML VIAL (FIVE THOUSAND) SUBCUT SCH ×3 (05:32→21:07)
[2019-01-04 05:35] LABS: ABS Basophils 0 10^3/ul (0-0.2); ABS Eosinophils 0 10^3/ul (0-0.6); ABS Lymphocytes 1.3 10^3/ul (1.0-4.8); ABS Neutrophils 19.1 10^3/ul (1.5-7.7); ABS Nucleated RBC 0 10^3/ul; Eosinophil % 0 %; Lymphocyte % 5.6 %; Nucleated Red Blood Cells % 0
[2019-01-04] MEDS: NS 0.9% 1000 ML** 1,000 ML IV SCH ×2 (08:42→15:52)
[2019-01-04] MEDS: Aspirin 81 mg CHEW TAB* 81 MG TAB.CHEW PO SCH (08:44)
[2019-01-04] MEDS: Multivitamins/Minerals TAB PO SCH (08:44)
[2019-01-04] MEDS: Finasteride TAB* 5 MG PO SCH (08:44)
[2019-01-04] MEDS: Oxybutynin TAB* 5 MG PO SCH ×2 (08:44→21:07)
[2019-01-04] MEDS: CMC:Alfuzosin ER (NF) 10 MG TAB.ER PO SCH (08:44)
[2019-01-04] MEDS ORDERED: amLODIPine TAB* 5 MG PO SCH (09:00)
[2019-01-04] MEDS ORDERED: amLODIPine TAB* 5 MG PO ONE ×2 (10:15→22:15)
--- NOTE | 2019-01-04 14:25 | PN ---
Subjective Date of Service: 01/04/19 Interval History: Mr. Alcantara is not quite sure how he is feeling today. He still feels poor overall , but does not know if it has improved since yesterday. Cough remains the same. No SOB or CP. Nursing continues to report generalized weakness. Family History: Unchanged from Admission Social History: Unchanged from Admission Past Medical History: Unchanged from Admission Objective Active Medications: Acetaminophen (Tylenol Tab*) 650 mg PO Q4H PRN FEVER/PAIN Alfuzosin HCl (Uroxatral (Nf)) 10 mg PO DAILY [facility] Amlodipine Besylate (Norvasc Tab*) 5 mg PO DAILY [facility] Aspirin (Aspirin 81 Mg Chew Tab*) 81 mg PO DAILY [facility] Finasteride (Proscar Tab*) 5 mg PO DAILY [facility] Guaifenesin (Mucinex*) 1,200 mg PO BID [facility] Heparin Sodium (Porcine) (Heparin Vial(*)) 5,000 units SUBCUT Q8HR [facility] Sodium Chloride (Ns 0.9% 1000 Ml) 1,000 mls @ 125 mls/hr IV PER RATE [facility] Ceftriaxone Sodium 1 gm/ (Sodium Chloride) 50 mls @ 200 mls/hr IVPB Q24H [facility] Azithromycin 500 mg/ Sodium (Chloride) 250 mls @ 250 mls/hr IVPB Q24H [facility] Multivitamins/Minerals (Theragran/Minerals Tab*) 1 tab PO DAILY [facility] Ondansetron HCl (Zofran Inj*) 4 mg IV Q6H PRN NAUSEA Oxybutynin Chloride (Ditropan Tab*) 5 mg PO BID [facility] Senna (Senokot Tab*) 1 tab PO BEDTIME [facility] Vital Signs - 8 hr 01/04/19 01/04/19 01/04/19 07:59 08:00 11:55 Temperature 97.0 F 96.9 F Pulse Rate 74 80 Respiratory 17 17 17 Rate Blood Pressure 151/76 144/66 (mmHg) O2 Sat by Pulse 98 98 Oximetry Oxygen Devices in Use Now: None, CPAP - at HS Appearance: Elderly male laying in bed in NAD Eyes: No Scleral Icterus Ears/Nose/Mouth/Throat: Mucous Membranes Moist Neck: NL Appearance and Movements; NL JVP, Trachea Midline Respiratory: Symmetrical Chest Expansion and Respiratory Effort, Clear to Auscultation Cardiovascular: NL Sounds; No Murmurs; No JVD, RRR Abdominal: NL Sounds; No Tenderness; No Distention Extremities: No Edema Neurological: Alert and Oriented x 3 Lines/Tubes/Other Access: Clean, Dry and Intact Peripheral IV Nutrition: Taking PO's Result Diagrams: 01/04/19 05:15 01/03/19 06:54 Assess/Plan/Problems-Billing Assessment: Mr. Alcantara is an 83 yr old male with PMH of BPH, trigeminal neuralgia, temporal arteritis, HTN, NU; who present to ED with chest pain x 3 days and worsening on day of presentation. - Patient Problems (1) Pneumonia Code(s): J18.9 - PNEUMONIA, UNSPECIFIED ORGANISM Comment: - Not noted on CTA on admission, but repeat CXR today shows left basilar pneumonia - Negative legionella and strep pneumo urine antigens - Sputum culture pending - Continue ceftriaxone, azithromycin (2) Sepsis Comment: - Meets criteria with tachycardia, tachypnea, leukocytosis - Present since admission with unknown source, source now presumed to be pneumonia - Blood cultures negative to date - Plan as above (3) Chest pain Code(s): R07.9 - CHEST PAIN, UNSPECIFIED Comment: - Present on admission, now resolved - Negative trops, no EKG changes; CTA ruled out dissection; stress test low risk - Suspect chest pain may have been secondary to a developing pneumonia (4) HTN (hypertension) Code(s): I10 - ESSENTIAL (PRIMARY) HYPERTENSION Comment: - Hypertensive, SBP 140-160s - Increase amlodipine (5) NU (obstructive sleep apnea) Code(s): G47.33 - OBSTRUCTIVE SLEEP APNEA (ADULT) (PEDIATRIC) Comment: - CPAP (6) BPH (benign prostatic hyperplasia) Code(s): N40.0 - BENIGN PROSTATIC HYPERPLASIA WITHOUT LOWER URINRY TRACT SYMP Comment: - Continue alfuzosin, finasteride (7) DVT prophylaxis Comment: - Heparin SQ (8) DNR (do not resuscitate) Comment: Status and Disposition: Inpatient for sepsis secondary to pneumonia. Anticipate d/c home vs [facility] when medically stable, likely 1-2 more days. Attending: John Mccormick
[2019-01-04] MEDS: cefTRIAXone(*) 1 GM in NS 0.9% 50 ML* 50 ML IVPB SCH (15:25)
[2019-01-04] MEDS: Azithromycin IV(*) 500 MG in NS 0.9% 250 ML* 250 ML IVPB SCH (15:52)
[2019-01-04] MEDS: Senna TAB PO SCH (21:07)
[2019-01-04] MEDS: guaiFENesin ER TAB 600 MG PO SCH (21:07)
[2019-01-05] MEDS: NS 0.9% 1000 ML** 1,000 ML IV SCH ×2 (02:40→10:39)
[2019-01-05] MEDS: Heparin VIAL(*) 5000 UNITS/ML VIAL (FIVE THOUSAND) SUBCUT SCH ×3 (05:42→21:09)
[2019-01-05 06:16] LABS: Calcium 8.2 mg/dL (8.6-10.3); Potassium 3.4 mmol/L (3.5-5.0)
[2019-01-05 06:22] LABS: BUN/Creatinine Ratio 31.7 (8-20); EGFR African American 155.3 (>60); EGFR Non-African American 128.4 (>60)
[2019-01-05] MEDS: CMC:Alfuzosin ER (NF) 10 MG TAB.ER PO SCH (07:47)
[2019-01-05] MEDS: Oxybutynin TAB* 5 MG PO SCH ×2 (08:16→21:09)
[2019-01-05] MEDS: guaiFENesin ER TAB 600 MG PO SCH ×2 (08:16→21:09)
[2019-01-05] MEDS: Aspirin 81 mg CHEW TAB* 81 MG TAB.CHEW PO SCH (08:16)
[2019-01-05] MEDS: amLODIPine TAB* 5 MG PO SCH (08:16)
[2019-01-05] MEDS: Multivitamins/Minerals TAB PO SCH (08:16)
[2019-01-05] MEDS: Finasteride TAB* 5 MG PO SCH (08:16)
--- NOTE | 2019-01-05 12:12 | PN ---
Subjective Date of Service: 01/05/19 Interval History: Mr. Alcantara is feeling better than yesterday. He reports that yesterday was "terrible" but cannot explain why he feels this way. He is surprised that he has pneumonia and is concerned that he got it from his neighbor who recently had pneumonia. He offers no specific complaints other than feeling weak. Denies CP, SOB, N/V. reports somewhat decrease appetite. She is concerned about his abdomen being distended, though he has no abdominal complaints. Nursing staff reported a BM this morning with "mucous" and a small amount of blood. Family History: Unchanged from Admission Social History: Unchanged from Admission Past Medical History: Unchanged from Admission Objective Active Medications: Acetaminophen (Tylenol Tab*) 650 mg PO Q4H PRN FEVER/PAIN Alfuzosin HCl (Uroxatral (Nf)) 10 mg PO DAILY [facility] Amlodipine Besylate (Norvasc Tab*) 10 mg PO DAILY [facility] Aspirin (Aspirin 81 Mg Chew Tab*) 81 mg PO DAILY [facility] Finasteride (Proscar Tab*) 5 mg PO DAILY [facility] Guaifenesin (Mucinex*) 1,200 mg PO BID [facility] Heparin Sodium (Porcine) (Heparin Vial(*)) 5,000 units SUBCUT Q8HR [facility] Ceftriaxone Sodium 1 gm/ (Sodium Chloride) 50 mls @ 200 mls/hr IVPB Q24H [facility] Azithromycin 500 mg/ Sodium (Chloride) 250 mls @ 250 mls/hr IVPB Q24H [facility] Multivitamins/Minerals (Theragran/Minerals Tab*) 1 tab PO DAILY [facility] Ondansetron HCl (Zofran Inj*) 4 mg IV Q6H PRN NAUSEA Oxybutynin Chloride (Ditropan Tab*) 5 mg PO BID [facility] Senna (Senokot Tab*) 1 tab PO BEDTIME [facility] Vital Signs - 8 hr 01/05/19 01/05/19 01/05/19 04:27 07:30 07:48 Temperature 98.7 F 98.0 F Pulse Rate 86 77 Respiratory 20 18 18 Rate Blood Pressure 160/79 138/68 (mmHg) O2 Sat by Pulse 97 97 Oximetry Oxygen Devices in Use Now: None, CPAP - at HS Appearance: Elderly male sitting in chair in NAD Eyes: No Scleral Icterus Ears/Nose/Mouth/Throat: Mucous Membranes Moist Neck: NL Appearance and Movements; NL JVP, Trachea Midline Respiratory: Symmetrical Chest Expansion and Respiratory Effort, - - Fine crackles to RLL, otherwise clear throughout Cardiovascular: NL Sounds; No Murmurs; No JVD, RRR Abdominal: - - Large, round, soft, nontender, normoactive BS Extremities: No Edema Neurological: Alert and Oriented x 3 - Very forgetful Lines/Tubes/Other Access: Clean, Dry and Intact Peripheral IV Nutrition: Taking PO's Result Diagrams: 01/04/19 05:15 01/05/19 05:23 Assess/Plan/Problems-Billing Assessment: Mr. Alcantara is an 83 yr old male with PMH of BPH, trigeminal neuralgia, temporal arteritis, HTN, NU; who present to ED with chest pain x 3 days and worsening on day of presentation. - Patient Problems (1) Pneumonia Code(s): J18.9 - PNEUMONIA, UNSPECIFIED ORGANISM Comment: - Not noted on CTA on admission, but repeat CXR today shows left basilar pneumonia - Negative legionella and strep pneumo urine antigens - Sputum grew normal rajan - Continue ceftriaxone, azithromycin (2) Abdominal distension Code(s): R14.0 - ABDOMINAL DISTENSION (GASEOUS) Comment: - Patient offers no complaints, but feels he is more distended than usual - BM this morning which reportedly contained mucous and a small amount of blood - Soft and nontender to palpation - Check abd xray to r/o obstruction, though have low suspicion as he is asymptomatic; check stool occult and culture (3) Sepsis Comment: - Met criteria with tachycardia, tachypnea, leukocytosis; now resolved - Present on admission with unknown source, source now presumed to be pneumonia - Blood cultures negative - PT/OT evals d/t weakness - Plan as above (4) Chest pain Code(s): R07.9 - CHEST PAIN, UNSPECIFIED Comment: - Present on admission, now resolved - Negative trops, no EKG changes; CTA ruled out dissection; stress test low risk - Suspect chest pain may have been secondary to a developing pneumonia (5) HTN (hypertension) Code(s): I10 - ESSENTIAL (PRIMARY) HYPERTENSION Comment: - Hypertensive, SBP 130-160s - Continue amlodipine (6) NU (obstructive sleep apnea) Code(s): G47.33 - OBSTRUCTIVE SLEEP APNEA (ADULT) (PEDIATRIC) Comment: - CPAP (7) BPH (benign prostatic hyperplasia) Code(s): N40.0 - BENIGN PROSTATIC HYPERPLASIA WITHOUT LOWER URINRY TRACT SYMP Comment: - Continue alfuzosin, finasteride (8) DVT prophylaxis Comment: - Heparin SQ (9) DNR (do not resuscitate) Comment: Status and Disposition: Inpatient for sepsis secondary to pneumonia. Anticipate d/c home vs [facility] when medically stable, likely 1-2 more days. Attending: Michelle Nowak
[2019-01-05] MEDS ORDERED: Potassium Chlor TAB* 20 MEQ TAB.ER PO ONE (12:19)
[2019-01-05] MEDS: cefTRIAXone(*) 1 GM in NS 0.9% 50 ML* 50 ML IVPB SCH (15:05)
[2019-01-05] MEDS: Azithromycin IV(*) 500 MG in NS 0.9% 250 ML* 250 ML IVPB SCH (15:36)
[2019-01-05] MEDS: Senna TAB PO SCH (21:09)
[2019-01-05] MEDS ORDERED: amLODIPine TAB* 5 MG PO ONE (21:30)
[2019-01-06] MEDS: Heparin VIAL(*) 5000 UNITS/ML VIAL (FIVE THOUSAND) SUBCUT SCH ×3 (05:07→20:37)
[2019-01-06 06:01] LABS: Hematocrit 35 % (36-46); Hemoglobin 11.6 g/dL (14.0-18.0); Mean Corpuscular HGB Conc 33 g/dL (31-36); Mean Corpuscular Hemoglobin 32 pg (27-31); Mean Corpuscular Volume 95 fL (80-94); Mean Platelet Volume 9.6 fL (7.4-10.4); Platelet Count 156 10^3/uL (150-450); Red Blood Count 3.66 10^6 /uL (4.18-5.48); Red Cell Distribution Width 13 % (10.5-15); White Blood Count 17.1 10^3/uL (3.5-10.8)
[2019-01-06 06:02] LABS: ABS Basophils 0 10^3/ul (0-0.2); ABS Eosinophils 0.1 10^3/ul (0-0.6); ABS Lymphocytes 1.3 10^3/ul (1.0-4.8); ABS Monocytes 2.3 10^3/ul (0-0.8); ABS Neutrophils 13.3 10^3/ul (1.5-7.7); ABS Nucleated RBC 0 10^3/ul; Eosinophil % 0.7 %; Lymphocyte % 7.8 %; Nucleated Red Blood Cells % 0
[2019-01-06 06:15] LABS: BUN/Creatinine Ratio 28.2 (8-20); Calcium 8.3 mg/dL (8.6-10.3); EGFR African American 127.9 (>60); EGFR Non-African American 105.7 (>60); Potassium 3.3 mmol/L (3.5-5.0)
[2019-01-06] MEDS: CMC:Alfuzosin ER (NF) 10 MG TAB.ER PO SCH (08:17)
[2019-01-06] MEDS: amLODIPine TAB* 5 MG PO SCH (08:18)
[2019-01-06] MEDS: guaiFENesin ER TAB 600 MG PO SCH ×2 (08:18→20:35)
[2019-01-06] MEDS: Multivitamins/Minerals TAB PO SCH (08:18)
[2019-01-06] MEDS: Aspirin 81 mg CHEW TAB* 81 MG TAB.CHEW PO SCH (08:18)
[2019-01-06] MEDS: Finasteride TAB* 5 MG PO SCH (08:18)
[2019-01-06] MEDS: Oxybutynin TAB* 5 MG PO SCH ×2 (08:18→20:35)
[2019-01-06] MEDS ORDERED: KCL 20 MEQ/100 ML IVPREMIX* 20 MEQ/100 ML BAG IV ONE (09:26)
[2019-01-06] MEDS ORDERED: Potassium Chlor TAB* 20 MEQ TAB.ER PO ONE (09:26)
[2019-01-06] MEDS: cefTRIAXone(*) 1 GM in NS 0.9% 50 ML* 50 ML IVPB SCH (14:30)
[2019-01-06] MEDS: Azithromycin IV(*) 500 MG in NS 0.9% 250 ML* 250 ML IVPB SCH (15:02)
[2019-01-06] MEDS ORDERED: Magnesium CITRATE* 300 ML BTL PO ONE (15:49)
--- NOTE | 2019-01-06 16:03 | PN ---
Subjective Date of Service: 01/06/19 Interval History: Mr. Alcantara is feeling better today. He offers no complaints. Sitting up in the chair. Denies CP, SOB, abd pain, N/V. He is still feeling weak and is agreeable to going to a [facility] after d/c. Nursing reports a light colored stool with some mucous overnight, but no sample was obtained. Will attempt to obtain a sample later today. Family History: Unchanged from Admission Social History: Unchanged from Admission Past Medical History: Unchanged from Admission Objective Active Medications: Acetaminophen (Tylenol Tab*) 650 mg PO Q4H PRN FEVER/PAIN Alfuzosin HCl (Uroxatral (Nf)) 10 mg PO DAILY [facility] Amlodipine Besylate (Norvasc Tab*) 10 mg PO DAILY [facility] Aspirin (Aspirin 81 Mg Chew Tab*) 81 mg PO DAILY [facility] Docusate Sodium (Colace Cap*) 100 mg PO BID [facility] Finasteride (Proscar Tab*) 5 mg PO DAILY [facility] Guaifenesin (Mucinex*) 1,200 mg PO BID [facility] Heparin Sodium (Porcine) (Heparin Vial(*)) 5,000 units SUBCUT Q8HR [facility] Ceftriaxone Sodium 1 gm/ (Sodium Chloride) 50 mls @ 200 mls/hr IVPB Q24H [facility] Azithromycin 500 mg/ Sodium (Chloride) 250 mls @ 250 mls/hr IVPB Q24H [facility] Multivitamins/Minerals (Theragran/Minerals Tab*) 1 tab PO DAILY [facility] Ondansetron HCl (Zofran Inj*) 4 mg IV Q6H PRN NAUSEA Oxybutynin Chloride (Ditropan Tab*) 5 mg PO BID [facility] Senna (Senokot Tab*) 1 tab PO BEDTIME [facility] Vital Signs - 8 hr 01/06/19 01/06/19 08:36 11:21 Temperature 98.4 F 97.7 F Pulse Rate 72 70 Respiratory 16 18 Rate Blood Pressure 129/64 120/52 (mmHg) O2 Sat by Pulse 96 99 Oximetry Oxygen Devices in Use Now: None, CPAP - at HS Appearance: Elderly male sitting in chair in NAD Eyes: No Scleral Icterus Ears/Nose/Mouth/Throat: Mucous Membranes Moist Neck: NL Appearance and Movements; NL JVP, Trachea Midline Respiratory: Symmetrical Chest Expansion and Respiratory Effort, Clear to Auscultation Cardiovascular: NL Sounds; No Murmurs; No JVD, RRR Abdominal: NL Sounds; No Tenderness; No Distention Extremities: No Edema Skin: No Rash or Ulcers Neurological: Alert and Oriented x 3 - Poor historian Lines/Tubes/Other Access: Clean, Dry and Intact Peripheral IV Nutrition: Taking PO's Result Diagrams: 01/07/19 08:03 01/07/19 08:03 Assess/Plan/Problems-Billing Assessment: Mr. Alcantara is an 83 yr old male with PMH of BPH, trigeminal neuralgia, temporal arteritis, HTN, NU; who present to ED with chest pain x 3 days and worsening on day of presentation. - Patient Problems (1) Pneumonia Code(s): J18.9 - PNEUMONIA, UNSPECIFIED ORGANISM Comment: - Not noted on CTA on admission, but repeat CXR shows left basilar pneumonia - Negative legionella and strep pneumo urine antigens - Sputum grew normal rajan - Continue ceftriaxone, azithromycin (day 4) (2) Abdominal distension Code(s): R14.0 - ABDOMINAL DISTENSION (GASEOUS) Comment: - Patient offers no complaints, but feels he is more distended than usual - BM this morning which reportedly contained mucous - Soft and nontender to palpation - Xray yesterday shows possible partial SBO, though this does not correlate clinically; suspect he is simply obstipated - Check stool occult and culture - Give mag citrate x1 today (3) Sepsis Comment: - Resolved - Met criteria with tachycardia, tachypnea, leukocytosis; now resolved - Present on admission with unknown source, source now known to be pneumonia - Blood cultures negative - Plan as above (4) Chest pain Code(s): R07.9 - CHEST PAIN, UNSPECIFIED Comment: - Present on admission, now resolved - Negative trops, no EKG changes; CTA ruled out dissection; stress test low risk - Suspect chest pain may have been secondary to a developing pneumonia (5) HTN (hypertension) Code(s): I10 - ESSENTIAL (PRIMARY) HYPERTENSION Comment: - Normotensive, SBP 120-140s - Continue amlodipine (6) NU (obstructive sleep apnea) Code(s): G47.33 - OBSTRUCTIVE SLEEP APNEA (ADULT) (PEDIATRIC) Comment: - CPAP (7) BPH (benign prostatic hyperplasia) Code(s): N40.0 - BENIGN PROSTATIC HYPERPLASIA WITHOUT LOWER URINRY TRACT SYMP Comment: - Continue alfuzosin, finasteride (8) DVT prophylaxis Comment: - Heparin SQ (9) DNR (do not resuscitate) Comment: Status and Disposition: Inpatient for sepsis secondary to pneumonia. Anticipate d/c home vs [facility] when a bed is obtained. Attending: Michelle Nowak
[2019-01-06] MEDS: Senna TAB PO SCH (20:35)
[2019-01-06] MEDS: Docusate CAP* 100 MG PO SCH (20:36)
[2019-01-07] MEDS: Heparin VIAL(*) 5000 UNITS/ML VIAL (FIVE THOUSAND) SUBCUT SCH ×3 (05:05→21:51)
[2019-01-07] MEDS: Aspirin 81 mg CHEW TAB* 81 MG TAB.CHEW PO SCH (08:09)
[2019-01-07] MEDS: Docusate CAP* 100 MG PO SCH ×2 (08:09→21:52)
[2019-01-07] MEDS: Finasteride TAB* 5 MG PO SCH (08:09)
[2019-01-07] MEDS: guaiFENesin ER TAB 600 MG PO SCH ×2 (08:09→21:46)
[2019-01-07] MEDS: amLODIPine TAB* 5 MG PO SCH (08:09)
[2019-01-07] MEDS: Multivitamins/Minerals TAB PO SCH (08:09)
[2019-01-07] MEDS: CMC:Alfuzosin ER (NF) 10 MG TAB.ER PO SCH (08:09)
[2019-01-07] MEDS: Oxybutynin TAB* 5 MG PO SCH ×2 (08:09→21:46)
[2019-01-07 08:41] LABS: Hematocrit 37 % (36-46); Hemoglobin 12.3 g/dL (14.0-18.0); Mean Corpuscular HGB Conc 34 g/dL (31-36); Mean Corpuscular Hemoglobin 32 pg (27-31); Mean Corpuscular Volume 95 fL (80-94); Mean Platelet Volume 9.9 fL (7.4-10.4); Platelet Count 181 10^3/uL (150-450); Red Blood Count 3.84 10^6 /uL (4.18-5.48); Red Cell Distribution Width 13 % (10.5-15); White Blood Count 16.9 10^3/uL (3.5-10.8)
[2019-01-07 08:57] LABS: BUN/Creatinine Ratio 21.7 (8-20); Calcium 8.4 mg/dL (8.6-10.3); EGFR African American 132.2 (>60); EGFR Non-African American 109.2 (>60); Magnesium 1.9 mg/dL (1.9-2.7); Potassium 3.8 mmol/L (3.5-5.0)
[2019-01-07] MEDS ORDERED: Magnesium CITRATE* 300 ML BTL PO ONE (08:59)
[2019-01-07 09:17] LABS: ABS Basophils 0 10^3/ul (0-0.2); ABS Eosinophils 0.2 10^3/ul (0-0.6); ABS Lymphocytes 1.3 10^3/ul (1.0-4.8); ABS Monocytes 2.6 10^3/ul (0-0.8); ABS Neutrophils 12.8 10^3/ul (1.5-7.7); ABS Nucleated RBC 0 10^3/ul; Lymphocyte % 7.8 %; Nucleated Red Blood Cells % 0
--- NOTE | 2019-01-07 15:03 | PN ---
Subjective Date of Service: 01/07/19 Interval History: Mr. Alcantara is feeling ok this morning. He feels about the same as yesterday. Still weak. No abd complaints including pain, distension, bloating, N/V/D. Breathing is ok - no SOB. No CP. Nursing was able to get stool sample this morning. Family History: Unchanged from Admission Social History: Unchanged from Admission Past Medical History: Unchanged from Admission Objective Active Medications: Acetaminophen (Tylenol Tab*) 650 mg PO Q4H PRN FEVER/PAIN Alfuzosin HCl (Uroxatral (Nf)) 10 mg PO DAILY [facility] Amlodipine Besylate (Norvasc Tab*) 10 mg PO DAILY [facility] Aspirin (Aspirin 81 Mg Chew Tab*) 81 mg PO DAILY [facility] Docusate Sodium (Colace Cap*) 100 mg PO BID [facility] Finasteride (Proscar Tab*) 5 mg PO DAILY [facility] Guaifenesin (Mucinex*) 1,200 mg PO BID [facility] Heparin Sodium (Porcine) (Heparin Vial(*)) 5,000 units SUBCUT Q8HR [facility] Ceftriaxone Sodium 1 gm/ (Sodium Chloride) 50 mls @ 200 mls/hr IVPB Q24H [facility] Azithromycin 500 mg/ Sodium (Chloride) 250 mls @ 250 mls/hr IVPB Q24H [facility] Multivitamins/Minerals (Theragran/Minerals Tab*) 1 tab PO DAILY [facility] Ondansetron HCl (Zofran Inj*) 4 mg IV Q6H PRN NAUSEA Oxybutynin Chloride (Ditropan Tab*) 5 mg PO BID [facility] Senna (Senokot Tab*) 1 tab PO BEDTIME [facility] Vital Signs - 8 hr 01/07/19 01/07/19 01/07/19 07:29 08:00 11:14 Temperature 98.2 F 97.6 F Pulse Rate 74 78 Respiratory 18 16 19 Rate Blood Pressure 131/60 117/56 (mmHg) O2 Sat by Pulse 95 97 Oximetry 01/07/19 01/07/19 11:34 14:05 Temperature 98.1 F 98.6 F Pulse Rate 74 74 Respiratory 22 18 Rate Blood Pressure 115/58 147/78 (mmHg) O2 Sat by Pulse 98 98 Oximetry Oxygen Devices in Use Now: None, CPAP - at HS Appearance: Elderly male sitting in chair in NAD Eyes: No Scleral Icterus Ears/Nose/Mouth/Throat: Mucous Membranes Moist Neck: NL Appearance and Movements; NL JVP, Trachea Midline Respiratory: Symmetrical Chest Expansion and Respiratory Effort, Clear to Auscultation Cardiovascular: NL Sounds; No Murmurs; No JVD, RRR Abdominal: NL Sounds; No Tenderness; No Distention, - - Large, round Extremities: No Edema Neurological: Alert and Oriented x 3 Lines/Tubes/Other Access: Clean, Dry and Intact Peripheral IV Nutrition: Taking PO's Result Diagrams: 01/07/19 08:03 01/07/19 08:03 Assess/Plan/Problems-Billing Assessment: Mr. Alcantara is an 83 yr old male with PMH of BPH, trigeminal neuralgia, temporal arteritis, HTN, NU; who present to ED with chest pain x 3 days and worsening on day of presentation. - Patient Problems (1) Pneumonia Code(s): J18.9 - PNEUMONIA, UNSPECIFIED ORGANISM Comment: - Not noted on CTA on admission, but repeat CXR shows left basilar pneumonia - Negative legionella and strep pneumo urine antigens - Sputum grew normal rajan - Continue ceftriaxone, azithromycin (day 02/10) (2) Abdominal distension Code(s): R14.0 - ABDOMINAL DISTENSION (GASEOUS) Comment: - Patient offers no complaints, but feels he is more distended than usual; soft and nontender to palpation - BM earlier this week reportedly contained mucous - Xray yesterday shows possible partial SBO, though this does not correlate clinically; suspect he is simply obstipated - Stool occult negative; culture pending (3) Sepsis Comment: - Resolved - Met criteria with tachycardia, tachypnea, leukocytosis; now resolved - Present on admission with unknown source, source now known to be pneumonia - Blood cultures negative - Plan as above (4) Chest pain Code(s): R07.9 - CHEST PAIN, UNSPECIFIED Comment: - Present on admission, now resolved - Negative trops, no EKG changes; CTA ruled out dissection; stress test low risk - Suspect chest pain may have been secondary to a developing pneumonia (5) HTN (hypertension) Code(s): I10 - ESSENTIAL (PRIMARY) HYPERTENSION Comment: - Normotensive, SBP 110-140s - Continue amlodipine (6) NU (obstructive sleep apnea) Code(s): G47.33 - OBSTRUCTIVE SLEEP APNEA (ADULT) (PEDIATRIC) Comment: - CPAP (7) BPH (benign prostatic hyperplasia) Code(s): N40.0 - BENIGN PROSTATIC HYPERPLASIA WITHOUT LOWER URINRY TRACT SYMP Comment: - Continue alfuzosin, finasteride (8) DVT prophylaxis Comment: - Heparin SQ (9) DNR (do not resuscitate) Comment: Status and Disposition: Inpatient for sepsis secondary to pneumonia. Medically stable. Anticipate d/c home vs [facility] when a bed is obtained. Attending: Michelle Nowak
[2019-01-07] MEDS: cefTRIAXone(*) 1 GM in NS 0.9% 50 ML* 50 ML IVPB SCH (16:06)
[2019-01-07] MEDS: Azithromycin IV(*) 500 MG in NS 0.9% 250 ML* 250 ML IVPB SCH (18:03)
[2019-01-07] MEDS: Senna TAB PO SCH (21:52)
[2019-01-08] MEDS: Heparin VIAL(*) 5000 UNITS/ML VIAL (FIVE THOUSAND) SUBCUT SCH (06:12)
[2019-01-08] MEDS: CMC:Alfuzosin ER (NF) 10 MG TAB.ER PO SCH (08:16)
[2019-01-08] MEDS: Multivitamins/Minerals TAB PO SCH (08:17)
[2019-01-08] MEDS: Oxybutynin TAB* 5 MG PO SCH (08:17)
[2019-01-08] MEDS: Docusate CAP* 100 MG PO SCH (08:17)
[2019-01-08] MEDS: Finasteride TAB* 5 MG PO SCH (08:17)
[2019-01-08] MEDS: guaiFENesin ER TAB 600 MG PO SCH (08:17)
[2019-01-08] MEDS: amLODIPine TAB* 5 MG PO SCH (08:18)
[2019-01-08] MEDS: Aspirin 81 mg CHEW TAB* 81 MG TAB.CHEW PO SCH (08:18)
[2019-01-08] MEDS ORDERED: cefTRIAXone(*) 1 GM in NS 0.9% 50 ML* 50 ML IVPB SCH (11:00)
[2019-01-08] MEDS ORDERED: Azithromycin IV(*) 500 MG in NS 0.9% 250 ML* 250 ML IVPB SCH (11:30)
--- NOTE | 2019-01-08 12:21 | DS ---
CC: AMA Hess; [facility]* DISCHARGE SUMMARY: DATE OF ADMISSION: 12/31/18 DATE OF DISCHARGE: 01/08/19 PRIMARY CARE PROVIDER: AMA Hess. ATTENDING PHYSICIAN: Michelle Nowak MD* (dictated by Dayna Bradshaw NP). PRIMARY DIAGNOSES: 1. Pneumonia. 2. Sepsis. 3. Chest pain, noncardiac. SECONDARY DIAGNOSES: 1. Hypertension. 2. Obstructive sleep apnea. 3. Benign prostatic hypertrophy. STUDIES WHILE IN THE HOSPITAL: 1. EKG on 12/31/18 shows normal sinus rhythm at a rate of 90. QTc 531. Right bundle-branch block. 2. Chest x-ray on 12/31/18 reads as no evidence for acute disease. 3. EKG on 12/31/18 shows normal sinus rhythm with a first-degree AV block and a rate of 88, QTc of 513, right bundle-branch block. 4. Chest, abdomen, and pelvis CTA on 12/31/18 reads as no aortic dissection, aneurysm, or rupture. No pulmonary emboli. Right inguinal hernia. No strangulation. Distal colonic diverticulosis. 5. EKG on 01/01/19 shows sinus bradycardia with a rate of 56, first-degree AV block, QTc 445, right bundle-branch block. 6. Transthoracic echocardiogram on 01/02/19 reads as the left ventricular chamber size is normal. Mild concentric left ventricular hypertrophy is observed. The left ventricle appears hyperdynamic. The estimated ejection fraction is greater than 70%. Global left ventricular wall motion and contractility are within normal limits. The left atrium is mildly dilated. The right ventricle is mildly dilated. The right ventricular global systolic function is mildly reduced. No significant valvular abnormalities noted. The study was used to optimize study. No prior for comparison at the time of interpretation. 7. Nuclear stress test on 01/02/19 reads as no evidence for infarct or ischemia. Assessment is low risk. 8. Gallbladder ultrasound on 01/02/19 reads as normal study. Cholelithiasis without sonographic features of acute cholecystitis. 9. Chest x-ray on 01/03/19 reads as probable left basilar pneumonia. Probable small bilateral pleural effusions. 10. Abdomen x-ray on 01/05/19 reads as moderately dilated loops of small bowel in a nonspecific pattern. Possibility of a partial small bowel obstruction should be considered. HISTORY OF PRESENT ILLNESS AND HOSPITAL COURSE: Mr. Alcantara is an 83-year-old male with past medical history of trigeminal neuralgia, temporal arteritis, hypertension, NU, and BPH, who presented to the emergency room on 12/31/18 with complaints of weakness and chest pain. Please see the history and physical by Rufus Camarillo NP for complete summary of the events leading up to this hospitalization. In short, the patient noted that 2 to 3 days prior he began having a cough and had difficulty bringing up sputum. He developed constant chest pain and discomfort, not worse with exertion or with deep breathing. He had no associated shortness of breath, diaphoresis, or nausea. He did note to be feeling more weak and fatigued. In the emergency room, he was noted to have a negative troponin and EKGs as noted above, though because of the concern for chest pain and his risk factors, he was admitted by the hospitalist service. The patient had 2 additional troponins, which were flat at 0.01. Because of his cough, he was tested for the flu and he was flu negative. A stress test was not ordered initially due to the atypical nature of his chest pain and it was felt that this could have represented a costochondritis secondary to an upper respiratory infection. He did have an unremarkable urinalysis. Ultimately, a nuclear stress test and echo were ordered, the results of both are noted above. There was no evidence of any cardiac etiology for his chest pain. On 01/01/19, the patient did sustain a mechanical fall here in the hospital. There were no noted injuries. That same night, the patient was noted to be febrile with a T-max of 101.4. He was also noted to have leukocytosis with a white blood count of 15.2 and therefore met SIRS criteria. There was no clear source of infection. Secondly, the patient did have a negative flu swab and urinalysis was unremarkable. Blood cultures were sent at that time. A gallbladder ultrasound was checked due to a mildly elevated bilirubin. Ultimately, there was no clear source of infection. The patient's white blood count continued to increase, and on 01/03/19, he was noted to have a white blood count of 30.4. At that point, a chest x-ray was repeated. Results are noted above, though it was indicative of pneumonia. The patient was started on ceftriaxone and azithromycin. He was noted to have negative legionella and Strep pneumoniae urine antigens, and he ultimately did have a sputum culture growing only normal rajan. The patient continued to improve on antibiotics, though was noted to have significant weakness and was requiring 1 to 2 assists to ambulate when he had previously been able to ambulate independently. His did note concern about abdominal distention. The patient had no GI symptoms, and on exam, his abdomen was soft, nontender to palpation, and bowel sounds were normoactive. An abdomen x-ray showed possibility of a small bowel obstruction, though this did not correlate clinically and it was felt he may have just been simply suffering from constipation. Nursing did note some abnormal stools with concerns for mucus. Ultimately, a stool sample was sent which was occult negative. Culture is pending at this time, though I have low suspicion for any significant finding. The patient was noted to be hypertensive while here in the hospital and his home dose of amlodipine was increased ultimately from 2.5 mg to 10 mg daily. Blood pressure has since been normotensive. The patient was evaluated by Physical Therapy, who felt as though he may benefit from rehab for his weakness. The patient was agreeable to rehab as he did not feel he could return home and function at his baseline level. As of today, the patient reports feeling well and he offers no complaints. He denies any shortness of breath and lung sounds are clear to auscultation. Abdomen is soft, nontender to palpation, and bowel sounds are normoactive. As of yesterday, white blood count had decreased to 15.9. Mr. Alcantara is stable for discharge today. Vital signs are as follows: Temp 98.9, heart rate 80, respiratory rate 18, oxygen saturation 98% on 2 L nasal canula, blood pressure 139/74. DISCHARGE MEDICATIONS: New medications: 1. Amoxicillin 1000 mg p.o. t.i.d. x 1 day. 2. Azithromycin 250 mg p.o. daily x1 day. 3. Senna 1 tab p.o. at bedtime. 4. Docusate 100 mg p.o. b.i.d. 5. Aspirin 81 mg p.o. daily. 6. Acetaminophen 650 mg p.o. q.4 hours p.r.n. fever or pain. Changed medications: Amlodipine 10 mg p.o. daily (previously was 2.5 mg daily). Continued medications: 1. Alfuzosin 10 mg p.o. daily. 2. Finasteride 5 mg p.o. daily. 3. Multivitamin 1 tab p.o. daily. 4. Oxybutynin 5 mg p.o. b.i.d. DISCHARGE PLAN: Mr. Alcantara will be discharged to subacute rehab at [facility]. Activity will be as tolerated. Diet will be heart healthy. Medications are noted above. The patient will need to complete 1 day of amoxicillin and azithromycin starting tomorrow 01/09/19 to complete a total of 7-days of antibiotic therapy for his pneumonia. He has additionally been started on docusate and senna as he does benefit from a bowel regimen. Additionally, as noted above, his amlodipine dosing has been increased to control his hypertension. He continues his other usual medications as noted above and I have made no further changes. He will need to follow up with a provider at [facility] and should follow up with his primary care provider after discharge from [facility]. He should return to the emergency room or nearest hospital for any worsening of symptoms, shortness of breath, lightheadedness, dizziness, chest discomfort, high fever, chills, nigh sweats, loss of consciousness, or any other worrisome signs or symptoms. DISCHARGE CONDITION: Good. DISCHARGE DISPOSITION: shelter facility, [facility]. This is a summarized report of a complex medical history and hospital stay. For further details, please see the entire medical record. Please note this discharge summary will be used as the admitting history and physical for [facility]. TIME SPENT: Approximately 40 minutes was spent on this discharge. DAYNA BRADSHAW, [employer] COVER INSPECTOR [id number]/CPS #: [id number] NATHALY
[2019-01-08 12:39] VITALS: BP 125/56
== END 2019-01-08 14:14 | DRG 871 ==
LOC: ED 18:01 → MEDTELE 21:10 → OBSVTOIN 01-02 15:50
PROVIDERS: ADMIT Internal Medicine; ATTEND Internal Medicine
PROC: 4A02XM4 Measurement of Cardiac Total Activity, External Approach (ICD-10-PCS; principal; 2019-01-02)
DX: A41.9 Sepsis, unspecified organism (principal); J18.9 Pneumonia, unspecified organism; K40.90 Unilateral inguinal hernia, without obstruction or gangrene, not specified as recurrent; K57.30 Diverticulosis of large intestine without perforation or abscess without bleeding; I45.10 Unspecified right bundle-branch block; N40.0 Benign prostatic hyperplasia without lower urinary tract symptoms; G50.0 Trigeminal neuralgia; I10 Essential (primary) hypertension; G47.33 Obstructive sleep apnea (adult) (pediatric); Z96.659 Presence of unspecified artificial knee joint; M94.0 Chondrocostal junction syndrome [Tietze]; I44.0 Atrioventricular block, first degree; K80.20 Calculus of gallbladder without cholecystitis without obstruction; Z66 Do not resuscitate; K59.00 Constipation, unspecified; R07.89 Other chest pain; M31.6 Other giant cell arteritis; W06.XXXA Fall from bed, initial encounter; Y92.230 Patient room in hospital as the place of occurrence of the external cause; Z98.49 Cataract extraction status, unspecified eye; Z82.49 Family history of ischemic heart disease and other diseases of the circulatory system; Z72.89 Other problems related to lifestyle; Z79.82 Long term (current) use of aspirin
CPT/HCPCS: 36415; 71045; 71275; 74019; 74174; 76705; 78452; 80048; 80053; 80061; 80076; 81003; 81015; 82272; 82607; 83036; 83605; 83690; 83735; 83880; 84443; 84484; 85025; 85060; 85610; 85652; 85730; 86140; 87040; 87070; 87086; 87205; 87899; 93005; 93017; 93306; 99284; A9270-GY; A9502; C8929; G0378; G8978-GP-CJ; G8979-GP-CI; G8987-GO-CK; G8988-GO-CI; J0280; J0456; J0696; J1644; J2270; J2405; J2785; J3480; Q9967

== ENCOUNTER 2021-02-19 04:24 | Inpatient (IN) ==
[2021-02-19] MEDS ORDERED: Heparin - STEMI 5,000 UNITS/ML 1 ml VIAL IV ONE ×2 (04:31→04:34)
[2021-02-19] MEDS ORDERED: fentaNYL 100 mcg/2 ml 50 MCG/ML VIAL ONE (04:37)
[2021-02-19] MEDS ORDERED: Iohexol 350 (CONTRAST) 200 ML MDV IV ONE ×3 (04:37→06:07)
[2021-02-19] MEDS ORDERED: Iohexol 350 (CONTRAST) 100 ML PAK IV ONE (04:37)
[2021-02-19] MEDS ORDERED: Midazolam 5 mg/5 ml VIAL 1 mg/ml 5 ml VIAL (5 mg) ONE (04:37)
[2021-02-19] MEDS ORDERED: Heparin 1,000 UNIT/ML 10 ml (10,000 UNITS) CATHLAB/DIALYSIS ONE (04:37)
[2021-02-19] MEDS ORDERED: Lidocaine 1% VIAL 10 MG/ML VIAL ONE (04:37)
[2021-02-19] MEDS ORDERED: Heparin 2 UNITS/ML 1000 mls IV ONE (04:37)
[2021-02-19] MEDS ORDERED: nitroGLYCERIN DRIP 100 MCG/ML 250 ML BTL ONE (04:37)
[2021-02-19] MEDS ORDERED: VERAPAMIL 2.5 MG/ML 2 ML VIAL ** 5 mg/2 ml ONE (04:37)
[2021-02-19 04:49] LABS: ABS Lymphocytes 1.2 10^3/ul (1.0-4.8); ABS Monocytes 1.1 10^3/ul (0-0.8); ABS Neutrophils 8.7 10^3/ul (1.5-7.7); Eosinophil % 0.1 %; Hematocrit 44 % (42-52); Hemoglobin 14.6 g/dL (14.0-18.0); Lymphocyte % 11.1 %; Mean Corpuscular HGB Conc 34 g/dL (31-36); Mean Corpuscular Hemoglobin 32 pg (27-31); Mean Corpuscular Volume 97 fL (80-94); Mean Platelet Volume 8.7 fL (7.4-10.4); Platelet Count 186 10^3/uL (150-450); Red Cell Distribution Width 13 % (10-15); White Blood Count 11.1 10^3/uL (3.5-10.8)
[2021-02-19 04:57] LABS: Activated Partial Thrombo Time 24.9 seconds (26.0-38.0); INR 1.12 (0.82-1.09)
[2021-02-19 05:19] LABS: Anion Gap 5 mmol/L (2-11); CO2 Carbon Dioxide 26 mmol/L (22-32); Calcium 8.6 mg/dL (8.6-10.3); Chloride 103 mmol/L (101-111); Potassium 3.9 mmol/L (3.5-5.0); Sodium 134 mmol/L (135-145)
[2021-02-19] MEDS ORDERED: Bivalirudin 250 MG VIAL ONE (05:20)
[2021-02-19 05:23] LABS: CKMB ng/mL 65.4 ng/mL (0.6-6.3)
[2021-02-19 05:25] LABS: ALT 17 U/L (7-52); AST 38 U/L (13-39); Albumin/Globulin Ratio 1.7 (1-3); Alkaline Phosphatase 80 U/L (34-104); Blood Urea Nitrogen 11 mg/dL (6-24); Creatine Kinase 334 U/L (10-223); EGFR African American 95.6 (>60); Globulin 2.3 g/dL (2-4); Glucose 164 mg/dL (70-100); LDL Cholesterol Direct 90 mg/dL; Total Protein 6.3 g/dL (6.4-8.9)
[2021-02-19] MEDS ORDERED: NS 0.9% 1000 ml BAG 1,000 ML IV SCH (06:45)
[2021-02-19 09:09] LABS: Troponin I 19.64 ng/mL (<0.03)
[2021-02-19 13:18] LABS: Troponin I 47.18 ng/mL (<0.03)
[2021-02-19] MEDS: Enoxaparin 40 MG/0.4 ML SYR SUBCUT SCH (18:10)
[2021-02-19 20:51] LABS: Troponin I 38.36 ng/mL (<0.03)
[2021-02-20 05:33] LABS: Hematocrit 39 % (42-52); Hemoglobin 13.1 g/dL (14.0-18.0); Mean Corpuscular HGB Conc 34 g/dL (31-36); Mean Corpuscular Hemoglobin 33 pg (27-31); Mean Corpuscular Volume 97 fL (80-94); Mean Platelet Volume 8.7 fL (7.4-10.4); Platelet Count 169 10^3/uL (150-450); Red Blood Count 4.05 10^6 /uL (4.18-5.48); Red Cell Distribution Width 13 % (10-15); White Blood Count 11.2 10^3/uL (3.5-10.8)
[2021-02-20 05:49] LABS: Albumin 3.5 g/dL (3.2-5.2); Albumin/Globulin Ratio 1.7 (1-3); EGFR African American 112.5 (>60); Globulin 2.1 g/dL (2-4); HDL Cholesterol 26.6 mg/dL; Potassium 3.4 mmol/L (3.5-5.0); Total Bilirubin 0.7 mg/dL (0.2-1.0); Total Protein 5.6 g/dL (6.4-8.9)
[2021-02-20 05:55] LABS: ABS Eosinophils 0.2 10^3/ul (0-0.6); ABS Lymphocytes 1.6 10^3/ul (1.0-4.8); ABS Monocytes 1.7 10^3/ul (0-0.8); ABS Neutrophils 7.8 10^3/ul (1.5-7.7); Eosinophil % 1.4 %; Lymphocyte % 13.9 %
[2021-02-20 13:27] LABS: Magnesium 1.9 mg/dL (1.9-2.7); Phosphorus 2.3 mg/dL (2.5-5.0)
[2021-02-20] MEDS: Enoxaparin 40 MG/0.4 ML SYR SUBCUT SCH (16:29)
[2021-02-20] MEDS ORDERED: Potassium Phosphate IV 15 MMOLE in NS 0.9% 250 ml 250 ML IVPB ONE (17:12)
[2021-02-20 18:39] LABS: Urine Appearance Clear; Urine Bilirubin Negative (Negative); Urine Blood 1+ (Negative); Urine Color Yellow; Urine Glucose Negative (Negative); Urine Ketones Negative (Negative); Urine Nitrite Negative (Negative); Urine Protein Negative (Negative); Urine Specific Gravity 1.016 (1.002-1.030); Urine Urobilinogen Negative (Negative)
[2021-02-20 18:41] LABS: Urine Bacteria Absent (Absent); Urine Red Blood Cell 2+(6-10/hpf) (Absent); Urine Squamous Epithelial Cell Present (Absent); Urine White Blood Cell Trace(0-5/hpf) (Absent)
[2021-02-21 00:31] LABS: Hematocrit 40 % (42-52); Hemoglobin 13.7 g/dL (14.0-18.0)
[2021-02-21 04:57] LABS: Hematocrit 39 % (42-52); Hemoglobin 13.2 g/dL (14.0-18.0); Mean Corpuscular HGB Conc 34 g/dL (31-36); Mean Corpuscular Hemoglobin 33 pg (27-31); Mean Corpuscular Volume 96 fL (80-94); Platelet Count 161 10^3/uL (150-450); Red Blood Count 4.05 10^6 /uL (4.18-5.48); Red Cell Distribution Width 13 % (10-15); White Blood Count 10.6 10^3/uL (3.5-10.8)
[2021-02-21 04:59] LABS: INR 1.27 (0.82-1.09)
[2021-02-21 05:15] LABS: Calcium 8.4 mg/dL (8.6-10.3); EGFR African American 119.5 (>60); EGFR Non-African American 98.7 (>60); Magnesium 1.8 mg/dL (1.9-2.7); Phosphorus 2.7 mg/dL (2.5-5.0); Potassium 3.6 mmol/L (3.5-5.0)
[2021-02-21] MEDS: Polyethylene Glycol 3350 17 GM PACKET PO SCH (12:51)
[2021-02-21] MEDS ORDERED: Magnesium Sulfate 2 gm BAG 2 GM/50 ML BAG IVPB ONE (15:21)
[2021-02-21] MEDS: Enoxaparin 40 MG/0.4 ML SYR SUBCUT SCH (17:51)
[2021-02-22 06:22] LABS: ABS Eosinophils 0.3 10^3/ul (0-0.6); ABS Lymphocytes 1.4 10^3/ul (1.0-4.8); ABS Monocytes 1.5 10^3/ul (0-0.8); ABS Neutrophils 7.3 10^3/ul (1.5-7.7); Eosinophil % 2.5 %; Hematocrit 40 % (42-52); Hemoglobin 13.7 g/dL (14.0-18.0); Lymphocyte % 13.7 %; Mean Corpuscular HGB Conc 34 g/dL (31-36); Mean Corpuscular Hemoglobin 33 pg (27-31); Mean Corpuscular Volume 96 fL (80-94); Mean Platelet Volume 8.7 fL (7.4-10.4); Platelet Count 169 10^3/uL (150-450); Red Blood Count 4.16 10^6 /uL (4.18-5.48); Red Cell Distribution Width 13 % (10-15); White Blood Count 10.5 10^3/uL (3.5-10.8)
[2021-02-22 07:03] LABS: Calcium 8.3 mg/dL (8.6-10.3); EGFR African American 127.3 (>60); EGFR Non-African American 105.2 (>60); Magnesium 1.9 mg/dL (1.9-2.7); Potassium 3.8 mmol/L (3.5-5.0)
[2021-02-22] MEDS: Polyethylene Glycol 3350 17 GM PACKET PO SCH (09:08)
[2021-02-22 12:51] VITALS: BP 127/53
== END 2021-02-22 16:50 | disposition home or self-care (01) | DRG 247 ==
LOC: ED 04:24 → CHICATH 04:45 → ICU 06:32 → MEDTELE 02-20 15:55
PROVIDERS: ATTEND Hospitalist

== ENCOUNTER 2021-08-03 19:47 | Inpatient (IN) ==
[2021-08-03 22:26] LABS: Hematocrit 42 % (42-52); Hemoglobin 14.6 g/dL (14.0-18.0); Mean Corpuscular HGB Conc 34 g/dL (31-36); Mean Corpuscular Hemoglobin 33 pg (27-31); Mean Corpuscular Volume 95 fL (80-94); Mean Platelet Volume 8.8 fL (7.4-10.4); Platelet Count 168 10^3/uL (150-450); Red Blood Count 4.47 10^6 /uL (4.18-5.48); Red Cell Distribution Width 13 % (10-15); White Blood Count 15.9 10^3/uL (3.5-10.8)
[2021-08-03 22:38] LABS: Activated Partial Thrombo Time 35.7 seconds (26.0-38.0); INR 1.2 (0.86-1.15)
[2021-08-03 22:45] LABS: ALT 17 U/L (7-52); AST 21 U/L (13-39); Albumin 4.2 g/dL (3.2-5.2); Albumin/Globulin Ratio 1.4 (1-3); Alkaline Phosphatase 75 U/L (35-149); Anion Gap 7 mmol/L (2-11); Blood Urea Nitrogen 11 mg/dL (6-24); C Reactive Protein 33.54 mg/L (<8.01); CO2 Carbon Dioxide 25 mmol/L (22-32); Calcium 9.2 mg/dL (8.6-10.3); Chloride 98 mmol/L (101-111); Creatine Kinase 283 U/L (10-223); Globulin 2.9 g/dL (2-4); Glucose 138 mg/dL (70-100); Magnesium 2.1 mg/dL (1.9-2.7); Potassium 3.8 mmol/L (3.5-5.0); Sodium 130 mmol/L (135-145); Total Protein 7.1 g/dL (6.4-8.9)
[2021-08-03 22:50] LABS: Troponin I 0.03 ng/mL (<0.03)
[2021-08-03 22:51] LABS: Alcohol, S < 13 mg/dL (<13)
[2021-08-03 23:06] LABS: TSH Ultra Thyroid Stim Horm 2.57 mcIU/mL (0.34-5.60)
[2021-08-03 23:12] LABS: ABS Basophils 0.1 10^3/ul (0-0.2); ABS Lymphocytes 1.3 10^3/ul (1.0-4.8); ABS Monocytes 2.2 10^3/ul (0-0.8); ABS Neutrophils 12.5 10^3/ul (1.5-7.7); Eosinophil % 0.3 %; Lymphocyte % 8.1 %; Nucleated Red Blood Cells % 0.1
[2021-08-04 05:15] LABS: Rapid COVID-19 Molecular Undetected (Undetected)
[2021-08-04 10:30] LABS: Hematocrit 44 % (42-52)
[2021-08-04] MEDS ORDERED: Perflutren Lipid Microsphere 3 ML VIAL ONE (12:30)
[2021-08-04] MEDS ORDERED: Adenosine 3 MG/ML 2 ml VIAL (6 mg) ONE (14:37)
[2021-08-04] MEDS ORDERED: ADENOSINE (DIAGNOSTIC) 3 MG/ML VIAL 90MG/30 ML IVPB ONE (14:37)
[2021-08-04] MEDS ORDERED: Adenosine 3 MG/ML 2 ml VIAL (6 mg) IV PUSH ONE (14:45)
[2021-08-04 19:21] LABS: Hematocrit 44 % (42-52); Hemoglobin 14.9 g/dL (14.0-18.0); Mean Corpuscular HGB Conc 34 g/dL (31-36); Mean Corpuscular Hemoglobin 33 pg (27-31); Mean Corpuscular Volume 97 fL (80-94); Mean Platelet Volume 9.2 fL (7.4-10.4); Platelet Count 170 10^3/uL (150-450); Red Blood Count 4.55 10^6 /uL (4.18-5.48); Red Cell Distribution Width 13 % (10-15); White Blood Count 18.3 10^3/uL (3.5-10.8)
[2021-08-04 19:39] LABS: Activated Partial Thrombo Time 34.2 seconds (26.0-38.0); INR 1.27 (0.86-1.15)
[2021-08-04 19:46] LABS: Troponin I 0.05 ng/mL (<0.03)
[2021-08-04 19:51] LABS: ABS Lymphocytes 1.2 10^3/ul (1.0-4.8); ABS Monocytes 1.6 10^3/ul (0-0.8); ABS Neutrophils 15.4 10^3/ul (1.5-7.7); Lymphocyte % 6.5 %
[2021-08-04] MEDS: Heparin 5000 UNITS/ML 1 mL VIAL SUBCUT SCH (23:37)
[2021-08-05] MEDS: Heparin 5000 UNITS/ML 1 mL VIAL SUBCUT SCH ×3 (05:59→22:17)
[2021-08-05 08:25] LABS: Hematocrit 41 % (42-52); Hemoglobin 14.1 g/dL (14.0-18.0); Mean Corpuscular HGB Conc 35 g/dL (31-36); Mean Corpuscular Hemoglobin 33 pg (27-31); Mean Corpuscular Volume 96 fL (80-94); Mean Platelet Volume 8.6 fL (7.4-10.4); Platelet Count 159 10^3/uL (150-450); Red Blood Count 4.23 10^6 /uL (4.18-5.48); Red Cell Distribution Width 13 % (10-15); White Blood Count 18.1 10^3/uL (3.5-10.8)
[2021-08-05] MEDS ORDERED: Magnesium Hydroxide LIQ 30 ML UDC PO PRN (08:32)
[2021-08-05 08:43] LABS: Albumin 3.8 g/dL (3.2-5.2); Albumin/Globulin Ratio 1.3 (1-3); Globulin 2.9 g/dL (2-4); Potassium 3.4 mmol/L (3.5-5.0); Total Bilirubin 1.1 mg/dL (0.2-1.0); Total Protein 6.7 g/dL (6.4-8.9)
[2021-08-05] MEDS ORDERED: Potassium Chloride LIQUID 20 MEQ/15 ML LIQUID PO ONE (08:45)
[2021-08-05 08:58] LABS: ABS Basophils 0.1 10^3/ul (0-0.2); ABS Eosinophils 0.1 10^3/ul (0-0.6); ABS Lymphocytes 1.6 10^3/ul (1.0-4.8); ABS Monocytes 2.5 10^3/ul (0-0.8); ABS Neutrophils 13.9 10^3/ul (1.5-7.7); Eosinophil % 0.6 %; Lymphocyte % 8.7 %
[2021-08-05] MEDS: Polyethylene Glycol 3350 17 GM PACKET PO PRN (09:52)
[2021-08-05] MEDS: Senna TAB 8.6 mg TAB PO PRN (09:53)
[2021-08-05 10:11] LABS: Magnesium 2.1 mg/dL (1.9-2.7)
[2021-08-05 19:21] LABS: Urine Appearance Cloudy; Urine Bilirubin Negative (Negative); Urine Blood 2+ (Negative); Urine Color Yellow; Urine Glucose Negative (Negative); Urine Ketones Negative (Negative); Urine Nitrite Negative (Negative); Urine Protein 1+(30 mg/dL) (Negative); Urine Specific Gravity 1.018 (1.002-1.030); Urine Urobilinogen Negative (Negative)
[2021-08-05 19:57] LABS: Urine Amorphous Crystals Present (Absent); Urine Bacteria 1+ (Absent); Urine Red Blood Cell Trace(0-2/hpf) (Absent); Urine Squamous Epithelial Cell Present (Absent); Urine White Blood Cell Trace(0-5/hpf) (Absent)
[2021-08-06] MEDS: Heparin 5000 UNITS/ML 1 mL VIAL SUBCUT SCH ×3 (06:08→21:27)
[2021-08-06 08:04] LABS: Hematocrit 39 % (42-52); Hemoglobin 13.4 g/dL (14.0-18.0); Mean Corpuscular HGB Conc 34 g/dL (31-36); Mean Corpuscular Hemoglobin 33 pg (27-31); Mean Corpuscular Volume 96 fL (80-94); Mean Platelet Volume 8.9 fL (7.4-10.4); Platelet Count 153 10^3/uL (150-450); Red Blood Count 4.07 10^6 /uL (4.18-5.48); Red Cell Distribution Width 13 % (10-15); White Blood Count 12.4 10^3/uL (3.5-10.8)
[2021-08-06 08:12] LABS: ABS Eosinophils 0.2 10^3/ul (0-0.6); ABS Lymphocytes 1.5 10^3/ul (1.0-4.8); ABS Monocytes 1.9 10^3/ul (0-0.8); ABS Neutrophils 8.8 10^3/ul (1.5-7.7); Eosinophil % 1.9 %; Lymphocyte % 11.8 %
[2021-08-06 08:20] LABS: Albumin 3.4 g/dL (3.2-5.2); Albumin/Globulin Ratio 1.2 (1-3); Calcium 8.4 mg/dL (8.6-10.3); Globulin 2.9 g/dL (2-4); Potassium 3.9 mmol/L (3.5-5.0); Total Bilirubin 1.1 mg/dL (0.2-1.0); Total Protein 6.3 g/dL (6.4-8.9)
[2021-08-06] MEDS: CMCS:Alfuzosin ER 10 mg TAB.ER (NF) 10 MG TAB.ER PO SCH (10:24)
[2021-08-07] MEDS: Heparin 5000 UNITS/ML 1 mL VIAL SUBCUT SCH ×3 (04:23→21:46)
[2021-08-07 07:25] LABS: Hematocrit 38 % (42-52); Hemoglobin 13.5 g/dL (14.0-18.0); Mean Corpuscular HGB Conc 35 g/dL (31-36); Mean Corpuscular Hemoglobin 34 pg (27-31); Mean Corpuscular Volume 97 fL (80-94); Mean Platelet Volume 8.8 fL (7.4-10.4); Platelet Count 150 10^3/uL (150-450); Red Blood Count 3.98 10^6 /uL (4.18-5.48); Red Cell Distribution Width 13 % (10-15); White Blood Count 10.2 10^3/uL (3.5-10.8)
[2021-08-07 07:32] LABS: ABS Eosinophils 0.4 10^3/ul (0-0.6); ABS Lymphocytes 1.3 10^3/ul (1.0-4.8); ABS Monocytes 1.6 10^3/ul (0-0.8); ABS Neutrophils 6.9 10^3/ul (1.5-7.7); Eosinophil % 3.5 %; Lymphocyte % 12.5 %
[2021-08-07 07:45] LABS: Calcium 8.2 mg/dL (8.6-10.3); Magnesium 1.9 mg/dL (1.9-2.7); Potassium 3.6 mmol/L (3.5-5.0)
[2021-08-07] MEDS: CMCS:Alfuzosin ER 10 mg TAB.ER (NF) 10 MG TAB.ER PO SCH ×2 (08:41→14:31)
[2021-08-07] MEDS ORDERED: NS 0.9% IVPB ONE (15:47)
[2021-08-07] MEDS ORDERED: ZOLEDRONIC ACID IVPB ONE (15:47)
[2021-08-07] MEDS ORDERED: Zoledronic/Mannitol 5 MG/100ML 5 MG/100 ML BTL IVPB ONE (16:00)
[2021-08-08] MEDS: Heparin 5000 UNITS/ML 1 mL VIAL SUBCUT SCH ×2 (05:00→14:37)
[2021-08-08 06:54] LABS: Hematocrit 37 % (42-52); Hemoglobin 12.8 g/dL (14.0-18.0); Mean Corpuscular HGB Conc 35 g/dL (31-36); Mean Corpuscular Hemoglobin 33 pg (27-31); Mean Corpuscular Volume 97 fL (80-94); Mean Platelet Volume 9.1 fL (7.4-10.4); Platelet Count 162 10^3/uL (150-450); Red Blood Count 3.85 10^6 /uL (4.18-5.48); Red Cell Distribution Width 13 % (10-15); White Blood Count 9.9 10^3/uL (3.5-10.8)
[2021-08-08 06:59] LABS: ABS Eosinophils 0.3 10^3/ul (0-0.6); ABS Lymphocytes 1.2 10^3/ul (1.0-4.8); ABS Monocytes 1.7 10^3/ul (0-0.8); ABS Neutrophils 6.8 10^3/ul (1.5-7.7); Eosinophil % 3.2 %
[2021-08-08 07:14] LABS: Calcium 8.2 mg/dL (8.6-10.3); Potassium 3.8 mmol/L (3.5-5.0)
[2021-08-08] MEDS: CMCS:Alfuzosin ER 10 mg TAB.ER (NF) 10 MG TAB.ER PO SCH (08:42)
[2021-08-08] MEDS ORDERED: Bupivacaine 0.5% SDV PF 30ML VIAL ONE (15:55)
[2021-08-08] MEDS ORDERED: Rocuronium 50 mg VIAL 10 mg/ml 5 ml VIAL (50 mg) ONE ×2 (16:42→17:55)
[2021-08-08] MEDS ORDERED: Lidocaine 2% PF 5 ML VIAL ONE (16:42)
[2021-08-08] MEDS ORDERED: fentaNYL 250 mcg/5 ml 50 MCG/ML 5 ml VIAL (250 MCG) ONE (16:42)
[2021-08-08] MEDS ORDERED: Propofol 10 MG/ML 20 ML BTL ONE (16:42)
[2021-08-08] MEDS ORDERED: Ketamine HCL 50 mg/ml 10 ml VIAL (500 MG) ONE (16:43)
[2021-08-08] MEDS ORDERED: Midazolam 2 mg/2 ml VIAL 1 mg/ml 2 ml VIAL (2 mg) ONE (16:43)
[2021-08-08] MEDS ORDERED: ceFAZolin 2 GM in NS PREMIX 2 GM/100 ML BAG IVPB ONE (16:44)
[2021-08-08] MEDS ORDERED: Phenylephrine 40 mcg/mL 10mL (400mcg) SYRINGE ONE (17:11)
[2021-08-08] MEDS ORDERED: EPHEDrine (Pressors) 50 MG/ML VIAL ONE (18:01)
[2021-08-08] MEDS ORDERED: Dexamethasone IV 4 MG/ML VIAL 1 ml VIAL ONE (18:12)
[2021-08-08] MEDS ORDERED: Ondansetron 4 mg VIAL 2 MG/ML 2 ml VIAL ONE (18:12)
[2021-08-08] MEDS ORDERED: fentaNYL 100 mcg/2 ml 50 MCG/ML VIAL IV PRN (21:27)
[2021-08-08] MEDS ORDERED: Naloxone 0.4 mg VIAL 0.4 mg/ml 1 ml VIAL IV PRN (21:27)
[2021-08-08] MEDS ORDERED: DiMENhydriNATE IV 50 mg/ml 1 ml VIAL IV PUSH PRN (21:27)
[2021-08-08] MEDS ORDERED: Ondansetron 4 mg VIAL 2 MG/ML 2 ml VIAL IV PRN (21:27)
[2021-08-08] MEDS ORDERED: oxyCODONE/Acetamin 5/325 mg TAB PO PRN (21:27)
[2021-08-08] MEDS ORDERED: LACTATED RINGERS 1000 ML BAG IV SCH (23:00)
[2021-08-09] MEDS: ceFAZolin 1 GM X 3 DOSES POST-OP Q8H (AddVan) IVPB SCH ×3 (02:49→17:12)
[2021-08-09 06:19] LABS: Hematocrit 33 % (42-52); Hemoglobin 11.1 g/dL (14.0-18.0); Mean Corpuscular HGB Conc 34 g/dL (31-36); Mean Corpuscular Hemoglobin 33 pg (27-31); Mean Corpuscular Volume 97 fL (80-94); Mean Platelet Volume 9.3 fL (7.4-10.4); Platelet Count 172 10^3/uL (150-450); Red Blood Count 3.35 10^6 /uL (4.18-5.48); Red Cell Distribution Width 13 % (10-15); White Blood Count 14.1 10^3/uL (3.5-10.8)
[2021-08-09 06:20] LABS: Calcium 7.3 mg/dL (8.6-10.3); Potassium 4.3 mmol/L (3.5-5.0)
[2021-08-09] MEDS: CMCS:Alfuzosin ER 10 mg TAB.ER (NF) 10 MG TAB.ER PO SCH (10:12)
[2021-08-09 11:05] LABS: Vitamin D Total 25(OH) 37.2 ng/mL (20-50)
[2021-08-09] MEDS: Enoxaparin 40 MG/0.4 ML SYR SUBCUT SCH (11:32)
[2021-08-09] MEDS ORDERED: cefTRIAXone 1 gm/50 mL NS BAG 1 GM/50 ML BAG IVPB SCH (21:00)
[2021-08-09] MEDS: Calcium/Vitamin D TAB 250/125 TAB PO SCH (22:13)
[2021-08-10 05:47] LABS: Hematocrit 29 % (42-52); Hemoglobin 9.7 g/dL (14.0-18.0); Mean Corpuscular HGB Conc 34 g/dL (31-36); Mean Corpuscular Hemoglobin 33 pg (27-31); Mean Corpuscular Volume 97 fL (80-94); Mean Platelet Volume 8.7 fL (7.4-10.4); Platelet Count 155 10^3/uL (150-450); Red Blood Count 2.95 10^6 /uL (4.18-5.48); Red Cell Distribution Width 13 % (10-15)
[2021-08-10] MEDS: CMCS:Alfuzosin ER 10 mg TAB.ER (NF) 10 MG TAB.ER PO SCH (08:42)
[2021-08-10] MEDS: Calcium/Vitamin D TAB 250/125 TAB PO SCH ×2 (08:42→20:47)
[2021-08-10] MEDS: Enoxaparin 40 MG/0.4 ML SYR SUBCUT SCH (11:44)
[2021-08-10] MEDS ORDERED: Senna TAB 8.6 mg TAB PO ONE (18:17)
[2021-08-10] MEDS ORDERED: Magnesium Hydroxide LIQ 30 ML UDC PO PRN (18:30)
[2021-08-10] MEDS ORDERED: Magnesium Hydroxide LIQ 30 ML UDC PO SCH (18:30)
[2021-08-11 06:08] LABS: Hematocrit 26 % (42-52); Mean Corpuscular HGB Conc 34 g/dL (31-36); Mean Corpuscular Hemoglobin 33 pg (27-31); Mean Corpuscular Volume 97 fL (80-94); Mean Platelet Volume 9.1 fL (7.4-10.4); Platelet Count 164 10^3/uL (150-450); Red Blood Count 2.73 10^6 /uL (4.18-5.48); Red Cell Distribution Width 13 % (10-15); White Blood Count 12.3 10^3/uL (3.5-10.8)
[2021-08-11] MEDS: Senna TAB 8.6 mg TAB PO PRN (09:56)
[2021-08-11] MEDS: Calcium/Vitamin D TAB 250/125 TAB PO SCH (09:56)
[2021-08-11] MEDS: Polyethylene Glycol 3350 17 GM PACKET PO PRN (09:56)
[2021-08-11] MEDS: CMCS:Alfuzosin ER 10 mg TAB.ER (NF) 10 MG TAB.ER PO SCH (10:03)
[2021-08-11 11:28] VITALS: BP 103/63
[2021-08-11] MEDS: Enoxaparin 40 MG/0.4 ML SYR SUBCUT SCH (11:36)
== END 2021-08-11 14:10 | DRG 522 ==
LOC: ED 19:47 → SUATTDRO 08-04 02:31 → EDHOLD 08-04 02:31 → SSU 08-04 02:32 → EDHOLD 08-04 12:24 → SSU 08-08 10:59
PROVIDERS: ADMIT Hospitalist; ATTEND Internal Medicine

== ENCOUNTER 2021-08-11 09:37 | Inpatient (IN) ==
[2021-08-11] MEDS ORDERED: Senna TAB 8.6 mg TAB PO PRN (10:45)
[2021-08-11] MEDS ORDERED: Al Hydrox/Mg Hydrox/Simet LIQ 30 ML UDC PO PRN (10:45)
[2021-08-11] MEDS ORDERED: Polyethylene Glycol 3350 17 GM PACKET PO PRN (11:02)
[2021-08-11] MEDS: Calcium/Vitamin D TAB 250/125 TAB PO SCH (21:19)
[2021-08-12 07:25] LABS: ABS Eosinophils 0.2 10^3/ul (0-0.6); ABS Lymphocytes 1.3 10^3/ul (1.0-4.8); ABS Monocytes 1.5 10^3/ul (0-0.8); ABS Neutrophils 7.9 10^3/ul (1.5-7.7); Eosinophil % 1.9 %; Hematocrit 28 % (42-52); Hemoglobin 9.5 g/dL (14.0-18.0); Lymphocyte % 12.2 %; Mean Corpuscular HGB Conc 34 g/dL (31-36); Mean Corpuscular Hemoglobin 33 pg (27-31); Mean Corpuscular Volume 98 fL (80-94); Mean Platelet Volume 8.6 fL (7.4-10.4); Platelet Count 201 10^3/uL (150-450); Red Blood Count 2.89 10^6 /uL (4.18-5.48); Red Cell Distribution Width 13 % (10-15)
[2021-08-12 07:43] LABS: Albumin 2.9 g/dL (3.2-5.2); Albumin/Globulin Ratio 0.9 (1-3); Calcium 7.7 mg/dL (8.6-10.3); Globulin 3.1 g/dL (2-4); Potassium 3.4 mmol/L (3.5-5.0); Total Bilirubin 0.9 mg/dL (0.2-1.0)
[2021-08-12] MEDS: Enoxaparin 40 MG/0.4 ML SYR SUBCUT SCH (09:19)
[2021-08-12] MEDS: CMCS:Alfuzosin ER 10 mg TAB.ER (NF) 10 MG TAB.ER PO SCH (09:19)
[2021-08-12] MEDS: Calcium/Vitamin D TAB 250/125 TAB PO SCH ×2 (09:22→20:43)
[2021-08-12 10:23] LABS: Magnesium 2.2 mg/dL (1.9-2.7)
[2021-08-12] MEDS: Potassium Chlor 20 meq TAB.ER PO SCH ×2 (11:08→20:43)
[2021-08-13 06:49] LABS: Calcium 7.8 mg/dL (8.6-10.3); Potassium 3.7 mmol/L (3.5-5.0)
[2021-08-13] MEDS: CMCS:Alfuzosin ER 10 mg TAB.ER (NF) 10 MG TAB.ER PO SCH (09:39)
[2021-08-13] MEDS: Enoxaparin 40 MG/0.4 ML SYR SUBCUT SCH (09:39)
[2021-08-13] MEDS: Calcium/Vitamin D TAB 250/125 TAB PO SCH ×2 (09:39→21:43)
[2021-08-13] MEDS: Potassium Chlor 20 meq TAB.ER PO SCH ×2 (09:40→21:43)
[2021-08-14] MEDS: CMCS:Alfuzosin ER 10 mg TAB.ER (NF) 10 MG TAB.ER PO SCH (10:34)
[2021-08-14] MEDS: Calcium/Vitamin D TAB 250/125 TAB PO SCH ×2 (10:35→19:13)
[2021-08-14] MEDS: Enoxaparin 40 MG/0.4 ML SYR SUBCUT SCH (10:35)
[2021-08-14] MEDS: Potassium Chlor 20 meq TAB.ER PO SCH ×2 (10:35→19:13)
[2021-08-15] MEDS: Enoxaparin 40 MG/0.4 ML SYR SUBCUT SCH (08:30)
[2021-08-15] MEDS: CMCS:Alfuzosin ER 10 mg TAB.ER (NF) 10 MG TAB.ER PO SCH (08:30)
[2021-08-15] MEDS: Calcium/Vitamin D TAB 250/125 TAB PO SCH ×2 (08:31→20:53)
[2021-08-15] MEDS: Potassium Chlor 20 meq TAB.ER PO SCH ×2 (08:31→20:53)
[2021-08-16 07:11] LABS: Calcium 7.8 mg/dL (8.6-10.3); Potassium 3.8 mmol/L (3.5-5.0)
[2021-08-16] MEDS: CMCS:Alfuzosin ER 10 mg TAB.ER (NF) 10 MG TAB.ER PO SCH (07:34)
[2021-08-16] MEDS: Enoxaparin 40 MG/0.4 ML SYR SUBCUT SCH (07:34)
[2021-08-16] MEDS: Calcium/Vitamin D TAB 250/125 TAB PO SCH ×2 (07:34→19:19)
[2021-08-16] MEDS: Potassium Chlor 20 meq TAB.ER PO SCH ×2 (07:34→19:19)
[2021-08-17] MEDS: Calcium/Vitamin D TAB 250/125 TAB PO SCH ×2 (09:40→19:39)
[2021-08-17] MEDS: Enoxaparin 40 MG/0.4 ML SYR SUBCUT SCH (09:40)
[2021-08-17] MEDS: CMCS:Alfuzosin ER 10 mg TAB.ER (NF) 10 MG TAB.ER PO SCH (09:40)
[2021-08-17] MEDS: Potassium Chlor 20 meq TAB.ER PO SCH ×2 (09:40→19:39)
[2021-08-18 07:44] LABS: ABS Eosinophils 0.3 10^3/ul (0-0.6); ABS Lymphocytes 1.4 10^3/ul (1.0-4.8); ABS Monocytes 1.3 10^3/ul (0-0.8); ABS Neutrophils 5.2 10^3/ul (1.5-7.7); Eosinophil % 3.4 %; Hematocrit 28 % (42-52); Hemoglobin 9.4 g/dL (14.0-18.0); Lymphocyte % 17.3 %; Mean Corpuscular HGB Conc 34 g/dL (31-36); Mean Corpuscular Hemoglobin 33 pg (27-31); Mean Corpuscular Volume 98 fL (80-94); Mean Platelet Volume 8.4 fL (7.4-10.4); Platelet Count 349 10^3/uL (150-450); Red Blood Count 2.86 10^6 /uL (4.18-5.48); Red Cell Distribution Width 14 % (10-15); White Blood Count 8.3 10^3/uL (3.5-10.8)
[2021-08-18 07:54] LABS: Albumin 2.9 g/dL (3.2-5.2); Globulin 2.9 g/dL (2-4); Potassium 3.9 mmol/L (3.5-5.0); Total Bilirubin 0.7 mg/dL (0.2-1.0); Total Protein 5.8 g/dL (6.4-8.9)
[2021-08-18] MEDS: Potassium Chlor 20 meq TAB.ER PO SCH ×2 (10:50→19:48)
[2021-08-18] MEDS: Calcium/Vitamin D TAB 250/125 TAB PO SCH ×2 (10:50→19:48)
[2021-08-18] MEDS: CMCS:Alfuzosin ER 10 mg TAB.ER (NF) 10 MG TAB.ER PO SCH (10:50)
[2021-08-18] MEDS: Enoxaparin 40 MG/0.4 ML SYR SUBCUT SCH (10:50)
[2021-08-19] MEDS: CMCS:Alfuzosin ER 10 mg TAB.ER (NF) 10 MG TAB.ER PO SCH (09:52)
[2021-08-19] MEDS: Calcium/Vitamin D TAB 250/125 TAB PO SCH ×2 (09:53→20:45)
[2021-08-19] MEDS: Potassium Chlor 20 meq TAB.ER PO SCH ×2 (09:53→20:44)
[2021-08-19] MEDS: Enoxaparin 40 MG/0.4 ML SYR SUBCUT SCH (09:53)
[2021-08-20] MEDS: Enoxaparin 40 MG/0.4 ML SYR SUBCUT SCH (10:22)
[2021-08-20] MEDS: Calcium/Vitamin D TAB 250/125 TAB PO SCH ×2 (10:22→20:09)
[2021-08-20] MEDS: CMCS:Alfuzosin ER 10 mg TAB.ER (NF) 10 MG TAB.ER PO SCH (10:22)
[2021-08-20] MEDS: Potassium Chlor 20 meq TAB.ER PO SCH ×2 (10:22→20:10)
[2021-08-21] MEDS: Calcium/Vitamin D TAB 250/125 TAB PO SCH ×2 (08:08→21:52)
[2021-08-21] MEDS: Potassium Chlor 20 meq TAB.ER PO SCH ×2 (08:10→21:51)
[2021-08-21] MEDS: CMCS:Alfuzosin ER 10 mg TAB.ER (NF) 10 MG TAB.ER PO SCH (08:11)
[2021-08-21] MEDS: Enoxaparin 40 MG/0.4 ML SYR SUBCUT SCH (08:12)
[2021-08-22] MEDS: CMCS:Alfuzosin ER 10 mg TAB.ER (NF) 10 MG TAB.ER PO SCH (09:21)
[2021-08-22] MEDS: Calcium/Vitamin D TAB 250/125 TAB PO SCH ×2 (09:21→20:09)
[2021-08-22] MEDS: Enoxaparin 40 MG/0.4 ML SYR SUBCUT SCH (09:21)
[2021-08-22] MEDS: Potassium Chlor 20 meq TAB.ER PO SCH ×2 (09:22→20:10)
[2021-08-23] MEDS: CMCS:Alfuzosin ER 10 mg TAB.ER (NF) 10 MG TAB.ER PO SCH (09:38)
[2021-08-23] MEDS: Calcium/Vitamin D TAB 250/125 TAB PO SCH ×2 (09:39→20:27)
[2021-08-23] MEDS: Enoxaparin 40 MG/0.4 ML SYR SUBCUT SCH (09:39)
[2021-08-23] MEDS: Potassium Chlor 20 meq TAB.ER PO SCH ×2 (09:39→20:27)
[2021-08-24] MEDS: CMCS:Alfuzosin ER 10 mg TAB.ER (NF) 10 MG TAB.ER PO SCH (08:44)
[2021-08-24] MEDS: Enoxaparin 40 MG/0.4 ML SYR SUBCUT SCH (08:44)
[2021-08-24] MEDS: Calcium/Vitamin D TAB 250/125 TAB PO SCH ×2 (08:44→21:03)
[2021-08-24] MEDS: Potassium Chlor 20 meq TAB.ER PO SCH ×2 (08:44→21:03)
[2021-08-25 06:52] LABS: ABS Eosinophils 0.2 10^3/ul (0-0.6); ABS Lymphocytes 1.6 10^3/ul (1.0-4.8); ABS Monocytes 1.1 10^3/ul (0-0.8); Eosinophil % 3.8 %; Hematocrit 31 % (42-52); Hemoglobin 10.4 g/dL (14.0-18.0); Lymphocyte % 26.9 %; Mean Corpuscular HGB Conc 34 g/dL (31-36); Mean Corpuscular Hemoglobin 33 pg (27-31); Mean Corpuscular Volume 98 fL (80-94); Mean Platelet Volume 8.1 fL (7.4-10.4); Nucleated Red Blood Cells % 0.1; Platelet Count 343 10^3/uL (150-450); Red Blood Count 3.13 10^6 /uL (4.18-5.48); Red Cell Distribution Width 14 % (10-15)
[2021-08-25 07:08] LABS: Albumin 3.2 g/dL (3.2-5.2); Albumin/Globulin Ratio 1.2 (1-3); Calcium 8.4 mg/dL (8.6-10.3); Globulin 2.7 g/dL (2-4); Total Bilirubin 0.4 mg/dL (0.2-1.0); Total Protein 5.9 g/dL (6.4-8.9)
[2021-08-25] MEDS: CMCS:Alfuzosin ER 10 mg TAB.ER (NF) 10 MG TAB.ER PO SCH (09:04)
[2021-08-25] MEDS: Calcium/Vitamin D TAB 250/125 TAB PO SCH ×2 (09:04→21:53)
[2021-08-25] MEDS: Potassium Chlor 20 meq TAB.ER PO SCH ×2 (09:04→21:53)
[2021-08-25] MEDS: Enoxaparin 40 MG/0.4 ML SYR SUBCUT SCH (09:04)
[2021-08-26] MEDS: Enoxaparin 40 MG/0.4 ML SYR SUBCUT SCH (09:15)
[2021-08-26] MEDS: CMCS:Alfuzosin ER 10 mg TAB.ER (NF) 10 MG TAB.ER PO SCH (09:15)
[2021-08-26] MEDS: Calcium/Vitamin D TAB 250/125 TAB PO SCH ×2 (09:15→20:05)
[2021-08-26] MEDS: Potassium Chlor 20 meq TAB.ER PO SCH ×2 (09:15→20:05)
[2021-08-27] MEDS: CMCS:Alfuzosin ER 10 mg TAB.ER (NF) 10 MG TAB.ER PO SCH (09:28)
[2021-08-27] MEDS: Calcium/Vitamin D TAB 250/125 TAB PO SCH ×2 (09:28→20:59)
[2021-08-27] MEDS: Potassium Chlor 20 meq TAB.ER PO SCH ×2 (09:29→20:58)
[2021-08-27] MEDS: Enoxaparin 40 MG/0.4 ML SYR SUBCUT SCH (09:30)
[2021-08-28 06:41] VITALS: BP 135/84
[2021-08-28] MEDS: CMCS:Alfuzosin ER 10 mg TAB.ER (NF) 10 MG TAB.ER PO SCH (09:45)
[2021-08-28] MEDS: Calcium/Vitamin D TAB 250/125 TAB PO SCH (09:45)
[2021-08-28] MEDS: Potassium Chlor 20 meq TAB.ER PO SCH (09:45)
[2021-08-28] MEDS: Enoxaparin 40 MG/0.4 ML SYR SUBCUT SCH (09:45)
== END 2021-08-28 12:30 | DRG 560 ==
LOC: PMRU 14:24
PROVIDERS: ADMIT Physical Medicine & Rehabilitation; ATTEND Physical Medicine & Rehabilitation

== ENCOUNTER 2023-01-05 00:17 | Inpatient (IN) ==
[2023-01-05] MEDS ORDERED: Lactated Ringers 1000 ml BAG 1,000 ML IV ONE (00:45)
[2023-01-05] MEDS ORDERED: Ondansetron 4 mg VIAL 2 MG/ML 2 ml VIAL IV ONE (00:49)
[2023-01-05 01:19] LABS: ABS Lymphocytes 0.2 10^3/ul (1.0-4.8); ABS Neutrophils 17.5 10^3/ul (1.5-7.7); Eosinophil % 0.1 %; Hematocrit 34 % (42-52); Hemoglobin 11.3 g/dL (14.0-18.0); Mean Corpuscular Hemoglobin 31 pg (27-31); Mean Corpuscular Hgb Conc 33 g/dL (31-36); Mean Corpuscular Volume 94 fL (80-94); Mean Platelet Volume 9.5 fL (7.4-10.4); Platelet Count 153 10^3/uL (150-450); Red Blood Count 3.64 10^6 /uL (4.18-5.48); Red Cell Distribution Width 13 % (10-15); White Blood Count 18.7 10^3/uL (3.5-10.8)
[2023-01-05] MEDS ORDERED: Lactated Ringers SEPSIS* BAG 2,260 ML IV ONE (01:34)
[2023-01-05 01:51] LABS: Urine Appearance Turbid; Urine Bilirubin Negative (Negative); Urine Blood 1+ (Negative); Urine Color Amber; Urine Glucose Negative (Negative); Urine Ketones Negative (Negative); Urine Nitrite Positive (Negative); Urine Protein 2+(100 mg/dL) (Negative); Urine Specific Gravity 1.017 (1.002-1.030); Urine Urobilinogen Negative (Negative)
[2023-01-05 01:55] LABS: Urine Amorphous Crystals Present (Absent); Urine Bacteria 1+ (Absent); Urine Red Blood Cell 3+(>10/hpf) (Absent); Urine Squamous Epithelial Cell Present (Absent); Urine White Blood Cell 3+(>20/hpf) (Absent)
[2023-01-05 02:02] LABS: CO2 Carbon Dioxide 22 mmol/L (22-32); Chloride 102 mmol/L (101-111); Potassium 3.4 mmol/L (3.5-5.0); Sodium 134 mmol/L (135-145)
[2023-01-05 02:03] LABS: ALT 16 U/L (7-52); AST 29 U/L (13-39); Albumin 3.1 g/dL (3.2-5.2); Albumin/Globulin Ratio 1.2 (1-3); Alkaline Phosphatase 101 U/L (35-149); Anion Gap 10 mmol/L (2-11); Blood Urea Nitrogen 36 mg/dL (6-24); C Reactive Protein 144.07 mg/L (<8.01); Calcium 8.5 mg/dL (8.6-10.3); Creatinine, Serum 1.37 mg/dL (0.67-1.17); Globulin 2.5 g/dL (2-4); Glucose 98 mg/dL (70-100); Lipase < 10 U/L (11.0-82.0); Total Protein 5.6 g/dL (6.4-8.9); eGFR CKD-EPI 49.6 (>60)
[2023-01-05] MEDS ORDERED: cefTRIAXone 1 gm/50 mL D5W 1 GM/50 ML BAG IV ONE (02:06)
[2023-01-05 02:16] LABS: Activated Partial Thrombo Time 30.2 seconds (26.0-38.0); INR 1.49 (0.88-1.18)
[2023-01-05 02:33] LABS: High Sensitivity Troponin 1 Hr 126 pg/mL (<20)
[2023-01-05] MEDS: Lactated Ringers 1000 ml BAG 1,000 ML IV SCH ×3 (03:15→23:34)
[2023-01-05] MEDS ORDERED: Norepinephrine IV 4 MG in NS 0.9% 250 ml 246 ML IV SCH (04:00)
[2023-01-05] MEDS: cefTRIAXone 1 gm/50 mL D5W 1 GM/50 ML BAG IV SCH (04:47)
[2023-01-05 04:52] LABS: ABS Lymphocytes 0.4 10^3/ul (1.0-4.8); ABS Monocytes 1.4 10^3/ul (0-0.8); ABS Neutrophils 18.6 10^3/ul (1.5-7.7); Hematocrit 31 % (42-52); Hemoglobin 10.2 g/dL (14.0-18.0); Mean Corpuscular Hemoglobin 32 pg (27-31); Mean Corpuscular Hgb Conc 33 g/dL (31-36); Mean Corpuscular Volume 95 fL (80-94); Mean Platelet Volume 9.2 fL (7.4-10.4); Platelet Count 132 10^3/uL (150-450); Red Blood Count 3.22 10^6 /uL (4.18-5.48); Red Cell Distribution Width 13 % (10-15); White Blood Count 20.4 10^3/uL (3.5-10.8)
[2023-01-05] MEDS: Azithromycin 500 mg/250 ml NS 500 MG/250 ML BAG IVPB SCH (05:26)
[2023-01-05 05:33] LABS: Calcium 8.3 mg/dL (8.6-10.3); Creatinine, Serum 1.13 mg/dL (0.67-1.17); Magnesium 1.6 mg/dL (1.9-2.7); Potassium 3.3 mmol/L (3.5-5.0); eGFR CKD-EPI 62.5 (>60)
[2023-01-05] MEDS ORDERED: KCL 20 MEQ/100 ML IVPREMIX 20 MEQ/100 ML BAG IV ONE (05:59)
[2023-01-05] MEDS ORDERED: Magnesium Sulfate IV 3 GM in NS 0.9% 100 ml BAG 100 ML IVPB ONE (05:59)
[2023-01-05] MEDS ORDERED: Potassium Chloride LIQUID 20 MEQ/15 ML LIQUID PO ONE (05:59)
[2023-01-05] MEDS: Enoxaparin 40 MG/0.4 ML SYR SUBCUT SCH (06:18)
[2023-01-05] MEDS: CMC:Alfuzosin ER 10 mg TAB.ER (NF) 10 MG TAB.ER PO SCH (08:46)
[2023-01-05] MEDS ORDERED: Polyethylene Glycol 3350 17 GM PACKET PO PRN (12:13)
[2023-01-05] MEDS ORDERED: Magnesium Hydroxide LIQ 30 ML UDC PO PRN (12:13)
[2023-01-05] MEDS ORDERED: Senna TAB 8.6 mg TAB PO PRN (12:13)
[2023-01-05] MEDS: Acetaminophen IV 1 GM/100ML 1,000 MG/100 ML BAG IV PRN (17:58)
[2023-01-06] MEDS: Azithromycin 500 mg/250 ml NS 500 MG/250 ML BAG IVPB SCH (04:21)
[2023-01-06] MEDS: cefTRIAXone 1 gm/50 mL D5W 1 GM/50 ML BAG IV SCH (04:27)
[2023-01-06] MEDS: Enoxaparin 40 MG/0.4 ML SYR SUBCUT SCH (05:54)
[2023-01-06 05:57] LABS: ABS Eosinophils 0.4 10^3/ul (0-0.6); ABS Lymphocytes 0.8 10^3/ul (1.0-4.8); ABS Monocytes 1.3 10^3/ul (0-0.8); ABS Neutrophils 8.3 10^3/ul (1.5-7.7); Eosinophil % 3.6 %; Hematocrit 29 % (42-52); Hemoglobin 9.9 g/dL (14.0-18.0); Mean Corpuscular Hemoglobin 32 pg (27-31); Mean Corpuscular Hgb Conc 34 g/dL (31-36); Mean Corpuscular Volume 96 fL (80-94); Mean Platelet Volume 9.4 fL (7.4-10.4); Platelet Count 122 10^3/uL (150-450); Red Blood Count 3.05 10^6 /uL (4.18-5.48); Red Cell Distribution Width 13 % (10-15); White Blood Count 10.7 10^3/uL (3.5-10.8)
[2023-01-06 06:23] LABS: Albumin 2.6 g/dL (3.2-5.2); Albumin/Globulin Ratio 1.3 (1-3); Calcium 7.5 mg/dL (8.6-10.3); Creatinine, Serum 0.76 mg/dL (0.67-1.17); Magnesium 1.9 mg/dL (1.9-2.7); Potassium 3.6 mmol/L (3.5-5.0); Total Bilirubin 0.3 mg/dL (0.2-1.0); Total Protein 4.6 g/dL (6.4-8.9); eGFR CKD-EPI 86.5 (>60)
[2023-01-06] MEDS: CMC:Alfuzosin ER 10 mg TAB.ER (NF) 10 MG TAB.ER PO SCH (09:04)
[2023-01-06] MEDS: Lactated Ringers 1000 ml BAG 1,000 ML IV SCH (22:20)
[2023-01-07] MEDS: Azithromycin 500 mg/250 ml NS 500 MG/250 ML BAG IVPB SCH (04:13)
[2023-01-07] MEDS: cefTRIAXone 1 gm/50 mL D5W 1 GM/50 ML BAG IV SCH (04:16)
[2023-01-07] MEDS: Enoxaparin 40 MG/0.4 ML SYR SUBCUT SCH (05:54)
[2023-01-07 06:55] LABS: ABS Eosinophils 0.2 10^3/ul (0-0.6); ABS Lymphocytes 0.9 10^3/ul (1.0-4.8); ABS Monocytes 1.5 10^3/ul (0-0.8); ABS Neutrophils 7.4 10^3/ul (1.5-7.7); Hematocrit 32 % (42-52); Hemoglobin 10.6 g/dL (14.0-18.0); Lymphocyte % 9.3 %; Mean Corpuscular Hemoglobin 32 pg (27-31); Mean Corpuscular Hgb Conc 34 g/dL (31-36); Mean Corpuscular Volume 95 fL (80-94); Mean Platelet Volume 9.5 fL (7.4-10.4); Platelet Count 138 10^3/uL (150-450); Red Blood Count 3.33 10^6 /uL (4.18-5.48); Red Cell Distribution Width 13 % (10-15); White Blood Count 10.1 10^3/uL (3.5-10.8)
[2023-01-07 07:06] LABS: Calcium 7.7 mg/dL (8.6-10.3); Creatinine, Serum 0.77 mg/dL (0.67-1.17); Potassium 3.5 mmol/L (3.5-5.0); eGFR CKD-EPI 86.1 (>60)
[2023-01-07] MEDS: Acetaminophen IV 1 GM/100ML 1,000 MG/100 ML BAG IV PRN (09:18)
[2023-01-07] MEDS: Lactated Ringers 1000 ml BAG 1,000 ML IV SCH ×2 (09:18→22:02)
[2023-01-07] MEDS: CMC:Alfuzosin ER 10 mg TAB.ER (NF) 10 MG TAB.ER PO SCH (09:34)
[2023-01-07] MEDS: Lidocaine PATCH 5% PATCH TRANSDERM SCH (10:25)
[2023-01-08] MEDS: cefTRIAXone 1 gm/50 mL D5W 1 GM/50 ML BAG IV SCH (04:36)
[2023-01-08] MEDS: Enoxaparin 40 MG/0.4 ML SYR SUBCUT SCH (05:51)
[2023-01-08 06:06] LABS: ABS Eosinophils 0.4 10^3/ul (0-0.6); ABS Lymphocytes 1.1 10^3/ul (1.0-4.8); ABS Monocytes 1.5 10^3/ul (0-0.8); ABS Neutrophils 8.2 10^3/ul (1.5-7.7); Eosinophil % 3.6 %; Hematocrit 32 % (42-52); Hemoglobin 10.7 g/dL (14.0-18.0); Lymphocyte % 9.6 %; Mean Corpuscular Hemoglobin 32 pg (27-31); Mean Corpuscular Hgb Conc 33 g/dL (31-36); Mean Corpuscular Volume 95 fL (80-94); Mean Platelet Volume 9.4 fL (7.4-10.4); Platelet Count 154 10^3/uL (150-450); Red Blood Count 3.37 10^6 /uL (4.18-5.48); Red Cell Distribution Width 14 % (10-15); White Blood Count 11.2 10^3/uL (3.5-10.8)
[2023-01-08 06:40] LABS: Creatinine, Serum 0.67 mg/dL (0.67-1.17); Potassium 3.4 mmol/L (3.5-5.0); eGFR CKD-EPI 89.8 (>60)
[2023-01-08] MEDS ORDERED: Potassium Chlor 20 meq TAB.ER PO ONE (07:18)
[2023-01-08] MEDS: CMC:Alfuzosin ER 10 mg TAB.ER (NF) 10 MG TAB.ER PO SCH (07:50)
[2023-01-08] MEDS: Lidocaine PATCH 5% PATCH TRANSDERM SCH (07:52)
[2023-01-08] MEDS: Lactated Ringers 1000 ml BAG 1,000 ML IV SCH (08:00)
[2023-01-08 08:08] LABS: Magnesium 1.6 mg/dL (1.9-2.7)
[2023-01-08] MEDS ORDERED: Furosemide 20 mg/2 ml IV VIAL IV ONE (09:45)
[2023-01-08] MEDS: Acetaminophen IV 1 GM/100ML 1,000 MG/100 ML BAG IV PRN (11:23)
[2023-01-09] MEDS: Enoxaparin 40 MG/0.4 ML SYR SUBCUT SCH (06:01)
[2023-01-09 06:15] LABS: Hematocrit 32 % (42-52); Hemoglobin 10.5 g/dL (14.0-18.0); Mean Corpuscular Hemoglobin 31 pg (27-31); Mean Corpuscular Hgb Conc 33 g/dL (31-36); Mean Corpuscular Volume 95 fL (80-94); Mean Platelet Volume 9.2 fL (7.4-10.4); Platelet Count 175 10^3/uL (150-450); Red Blood Count 3.41 10^6 /uL (4.18-5.48); Red Cell Distribution Width 13 % (10-15); White Blood Count 13.1 10^3/uL (3.5-10.8)
[2023-01-09 06:18] LABS: ABS Eosinophils 0.6 10^3/ul (0-0.6); ABS Lymphocytes 1.4 10^3/ul (1.0-4.8); ABS Monocytes 1.6 10^3/ul (0-0.8); ABS Neutrophils 9.4 10^3/ul (1.5-7.7); Eosinophil % 4.9 %
[2023-01-09 06:37] LABS: Calcium 8.1 mg/dL (8.6-10.3); Creatinine, Serum 0.66 mg/dL (0.67-1.17); Magnesium 1.7 mg/dL (1.9-2.7); Potassium 3.4 mmol/L (3.5-5.0); eGFR CKD-EPI 90.2 (>60)
[2023-01-09] MEDS ORDERED: Magnesium Sulfate 2 gm BAG 2 GM/50 ML BAG IVPB ONE (08:30)
[2023-01-09] MEDS ORDERED: Potassium Chlor 20 meq TAB.ER PO ONE ×3 (08:31→16:30)
[2023-01-09] MEDS: CMC:Alfuzosin ER 10 mg TAB.ER (NF) 10 MG TAB.ER PO SCH (09:43)
[2023-01-09] MEDS: Lidocaine PATCH 5% PATCH TRANSDERM SCH (09:44)
[2023-01-09] MEDS ORDERED: Furosemide 20 mg/2 ml IV VIAL IV SLOW PU ONE (12:17)
[2023-01-10] MEDS: Enoxaparin 40 MG/0.4 ML SYR SUBCUT SCH (06:59)
[2023-01-10 07:13] LABS: Hematocrit 31 % (42-52); Hemoglobin 10.6 g/dL (14.0-18.0); Mean Corpuscular Hemoglobin 33 pg (27-31); Mean Corpuscular Hgb Conc 34 g/dL (31-36); Mean Corpuscular Volume 95 fL (80-94); Platelet Count 199 10^3/uL (150-450); Red Blood Count 3.24 10^6 /uL (4.18-5.48); Red Cell Distribution Width 13 % (10-15); White Blood Count 11.5 10^3/uL (3.5-10.8)
[2023-01-10 07:36] LABS: Calcium 8.1 mg/dL (8.6-10.3); Creatinine, Serum 0.63 mg/dL (0.67-1.17); Potassium 4.1 mmol/L (3.5-5.0); eGFR CKD-EPI 91.5 (>60)
[2023-01-10 08:06] LABS: ABS Eosinophils 0.7 10^3/ul (0-0.6); ABS Lymphocytes 1.4 10^3/ul (1.0-4.8); ABS Monocytes 1.7 10^3/ul (0-0.8); ABS Neutrophils 7.7 10^3/ul (1.5-7.7); Eosinophil % 5.7 %; Lymphocyte % 12.5 %
[2023-01-10] MEDS: Lidocaine PATCH 5% PATCH TRANSDERM SCH (11:24)
[2023-01-10] MEDS: CMC:Alfuzosin ER 10 mg TAB.ER (NF) 10 MG TAB.ER PO SCH (11:29)
[2023-01-10 12:13] VITALS: BP 124/64
== END 2023-01-10 15:55 | disposition home or self-care (01) | DRG 871 ==
LOC: ED 00:17 → SUATTDRO 03:34 → EDHOLD 03:34 → ICU 04:06 → MED 17:46
PROVIDERS: ADMIT Internal Medicine Critical Care Medicine; ATTEND Internal Medicine